=== PATIENT | female | born 1940 | race Hispanic/Latino ===

== ENCOUNTER 2016-12-06 07:35 | Day surgery (SDC) | payer MEDICARE, OTHER ==
--- NOTE | 2016-12-06 08:34 | Anesthesia Day of Surgery ---
Anesthesia Day of Surgery - Day of Surgery Patient Examined: Yes Patient H&P Reviewed: Yes Patient is NPO: Yes
--- NOTE | 2016-12-06 08:34 | Anesthesia Consultation ---
Anesthesia Consult and Med Hx Date of service: 12/06/16 - Airway Anesthetic Teeth Evaluation: Good ROM Head & Neck: Adequate Mental/Hyoid Distance: Adequate Mallampati Class: Class II Intubation Access Assessment: Probably Good - Pulmonary Exam CTA: Yes - Cardiac Exam Cardiac Exam: RRR - Pre-Operative Health Status ASA Pre-Surgery Classification: ASA2 Proposed Anesthetic Plan: General - Pulmonary Hx Smoking: Yes (STOPPED 1970- IRREGULAR SMOKER) Hx Sleep Apnea: No (TYREE PRE SCREEN HIGH RISK) - Cardiovascular System Hx Hypertension: Yes (X 20 YRS) - Central Nervous System Hx Back Pain: Yes - Gastrointestinal Hx Gastroesophageal Reflux Disease: Yes
[2016-12-06] MEDS ORDERED: NACL 0.9% 1000 ML 1,000 ML IV SCH (09:00)
[2016-12-06] MEDS ORDERED: ANCEF/STERILE WATER 2 GM/20 ML IV NR (09:00)
[2016-12-06] MEDS ORDERED: PEPCID PO NR (09:00)
[2016-12-06 09:16] LABS: Basophils % (Auto) 0.4 % (0.0-1.8); Eosinophils % (Auto) 2.5 % (0.0-4.3); Hematocrit 36.8 % (30.3-42.9); Mean Corpuscular HGB Conc 33 % (30-34); Mean Corpuscular Hemoglobin 29 pg (28-32); Mean Corpuscular Volume 88 fl (79-97); Platelet Count 205 K/mm3 (140-440); Red Blood Count 4.17 M/mm3 (3.65-5.03); Red Cell Distribution Width 14.1 % (13.2-15.2); White Blood Count 8.3 K/mm3 (4.5-11.0)
[2016-12-06] MEDS ORDERED: DIPRIVAN 10 MG/ML IV ONE (09:20)
[2016-12-06] MEDS ORDERED: XYLOCAINE MPF 2% ONE (09:21)
[2016-12-06] MEDS ORDERED: DILAUDID IV PRN ×2 (09:21)
[2016-12-06] MEDS ORDERED: SUBLIMAZE ONE (09:21)
[2016-12-06 09:24] LABS: BUN/Creatinine Ratio 17.27; Chloride 98.6 mmol/L (98-107); Potassium 3.4 mmol/L (3.6-5.0)
[2016-12-06] MEDS ORDERED: DILAUDID ONE (09:35)
--- NOTE | 2016-12-06 10:11 | Post Operative Note ---
Pre-op diagnosis: bladder cancer Post-op diagnosis: same Findings: min erythema Procedure: cysto BT biopsies Anesthesia: GETA Surgeon: ADONIS LOPEZ Estimated blood loss: minimal Pathology: list (bladder) Specimen disposition: to lab Disposition: PACU
[2016-12-06] MEDS ORDERED: NACL 0.9% IR ONE (10:45)
[2016-12-06] MEDS ORDERED: WATER FOR IRRIG STERILE IR ONE ×2 (10:45)
[2016-12-06] MEDS ORDERED: NEO SYNEPHRINE/NS Syringe(OR USE) IV ONE (10:49)
[2016-12-06] MEDS ORDERED: LASIX ONE (10:49)
[2016-12-06] MEDS ORDERED: ZOFRAN ONE (10:53)
[2016-12-06] MEDS ORDERED: DECADRON ONE (10:53)
--- NOTE | 2016-12-06 11:06 | Discharge Summary ---
Short Stay Discharge Plan Activity: other (no straining ) Weight Bearing Status: Full Weight Bearing Diet: regular, low fat, low cholesterol, low salt, other Special Instructions: other (fluids ) Durable Medical Equipment Needed Upon Discharge: other (teach vázquez care ) Follow up with: YUNG MILLS MD [Primary Care Provider] - 7 Days ADONIS LOPZE MD [Staff Physician] - 7 Days
--- NOTE | 2016-12-06 11:19 | Operative Report ---
PREOPERATIVE DIAGNOSIS: Bladder cancer. POSTOPERATIVE DIAGNOSES: Bladder cancer with minimal erythema, normal looking bladder. PROCEDURE: Cystoscopy, biopsies, fulguration. SURGEON: Luis Carlos Isaac MD ANESTHESIA: General. FINDINGS: This is a woman who had a high grade tumor. It was well resected. She now presents for followup cystoscopy and deeper biopsies. DESCRIPTION OF PROCEDURE: The patient was brought to the operating room and placed on the operating table. Following induction of anesthesia, placed in lithotomy position, prepped and draped in usual sterile fashion. Cystourethroscopy showed minimal erythema where the old tumor was. There was no recurrent tumor noted. Biopsies and deeper biopsies were obtained on that area, as well as we biopsied the other side as well. The patient tolerated the procedure well. Area was cauterized. Sterling catheter was left, irrigated clear. Family notified. The patient tolerated the procedure well and brought to recovery in stable condition. JOB# [id number] OWEN/JENNIFER
--- NOTE | 2016-12-06 11:45 | Post Anesthesia Evaluation ---
- Post Anesthesia Evaluation Patient Participated: Yes Airway Patent: Yes Stable Respiratory Function: Yes Nausea/Vomiting: No Temp > 96.8F: Yes Pain Manageable: Yes Adequeate Hydration: Yes Anesthesia Complications: No Block Receding Appropriately: Not Applicable Patient on Ventilator: No
[2016-12-06 12:45] VITALS: BP 146/62
== END 2016-12-06 12:43 | disposition home or self-care (01) ==
LOC: OR 07:35
PROVIDERS: ATTEND Urology
DX: D30.3 Benign neoplasm of bladder (principal); I10 Essential (primary) hypertension; Z87.891 Personal history of nicotine dependence; K21.9 Gastro-esophageal reflux disease without esophagitis
CPT/HCPCS: 36415; 52204; 80048; 85025; 88305; A4217; J0690; J1100; J1940; J2370; J2405; J2704; J3010; J7030; J1170

== ENCOUNTER 2017-03-30 12:15 | Day surgery (SDC) | payer MEDICARE, OTHER ==
[~2017-03-30 12:15] MED LIST: ANCEF/STERILE WATER 2 GM/20 ML 2 GM/20 ML SYRINGE IV NR; WATER FOR IRRIG STERILE IR ONE
[2017-03-30] MEDS ORDERED: NACL BACTERIOSTATIC INFILTRATI ONE (12:20)
[2017-03-30] MEDS ORDERED: ZOFRAN IV PRN (13:14)
[2017-03-30] MEDS ORDERED: SUBLIMAZE IV PRN (13:14)
--- NOTE | 2017-03-30 13:14 | Anesthesia Day of Surgery ---
Anesthesia Day of Surgery - Day of Surgery Patient Examined: Yes Patient H&P Reviewed: Yes Patient is NPO: Yes
--- NOTE | 2017-03-30 13:16 | Anesthesia Consultation ---
Anesthesia Consult and Med Hx Date of service: 03/30/17 - Airway Anesthetic Teeth Evaluation: Poor ROM Head & Neck: Adequate Mental/Hyoid Distance: Adequate Mallampati Class: Class II Intubation Access Assessment: Probably Good - Pulmonary Exam CTA: Yes (distant bs/ no wheeze) - Cardiac Exam Cardiac Exam: RRR - Pre-Operative Health Status ASA Pre-Surgery Classification: ASA3 Proposed Anesthetic Plan: General - Pulmonary Hx Smoking: Yes (d/c 1969') Hx Asthma: Yes Hx Respiratory Symptoms: Yes (uses neb prn) Hx Sleep Apnea: No (TYREE PRE SCREEN HIGH RISK) - Cardiovascular System Hx Hypertension: Yes (X 20 YRS) - Central Nervous System Hx Neuromuscular Disorder: Yes (OA) Hx Back Pain: Yes - Gastrointestinal Hx Gastroesophageal Reflux Disease: Yes (controlled on meds) - Other Systems Hx Obesity: Yes - Additional Comments Anesthesia Medical History Comments: lymphedema
[2017-03-30 13:49] LABS: Basophils % (Auto) 0.6 % (0.0-1.8); Eosinophils % (Auto) 7.3 % (0.0-4.3); Hematocrit 38.1 % (30.3-42.9); Hemoglobin 12.7 gm/dl (10.1-14.3); Mean Corpuscular HGB Conc 33 % (30-34); Mean Corpuscular Hemoglobin 29 pg (28-32); Mean Corpuscular Volume 88 fl (79-97); Platelet Count 253 K/mm3 (140-440); Red Blood Count 4.34 M/mm3 (3.65-5.03); White Blood Count 9.8 K/mm3 (4.5-11.0)
[2017-03-30] MEDS ORDERED: NACL 0.9% 1000 ML 1,000 ML IV SCH (14:00)
[2017-03-30] MEDS ORDERED: PEPCID IV NR (14:00)
[2017-03-30 14:03] LABS: Alanine Aminotransferase 14 units/L (7-56); Albumin/Globulin Ratio 1.5 %; Alkaline Phosphatase 72 units/L (35-129); Anion Gap 13 mmol/L; BUN/Creatinine Ratio 23.75; Blood Urea Nitrogen 19 mg/dL (7-17); Calcium 9.4 mg/dL (8.4-10.2); Carbon Dioxide 34 mmol/L (22-30); Chloride 95.1 mmol/L (98-107); Glucose 106 mg/dL (65-100); Potassium 3.6 mmol/L (3.6-5.0); Sodium 138 mmol/L (137-145); Total Protein 6.6 g/dL (6.3-8.2)
[2017-03-30] MEDS ORDERED: DIPRIVAN 10 MG/ML IV ONE (14:15)
[2017-03-30] MEDS ORDERED: XYLOCAINE MPF 2% ONE (14:30)
[2017-03-30] MEDS ORDERED: SUBLIMAZE ONE (14:31)
[2017-03-30] MEDS ORDERED: SORBITOL-MANNITOL IRRIG IR ONE (14:54)
[2017-03-30] MEDS ORDERED: DECADRON ONE (14:56)
[2017-03-30] MEDS ORDERED: ZOFRAN ONE (14:57)
[2017-03-30] MEDS ORDERED: ePHEDrine SULFATE ONE (14:59)
[2017-03-30] MEDS ORDERED: WATER FOR IRRIG STERILE IR ONE (15:08)
--- NOTE | 2017-03-30 15:29 | Post Anesthesia Evaluation ---
- Post Anesthesia Evaluation Airway Patent: Yes Stable Respiratory Function: Yes Nausea/Vomiting: No Temp > 96.8F: Yes Pain Manageable: Yes Adequeate Hydration: Yes Anesthesia Complications: No Block Receding Appropriately: Not Applicable Patient on Ventilator: No
--- NOTE | 2017-03-30 15:42 | Post Operative Note ---
Date of procedure: 03/30/17 Pre-op diagnosis: bladder cancer Post-op diagnosis: same Findings: 2 small superficial tumors Procedure: cysto bt excision Anesthesia: GETA Surgeon: ADONIS LOPEZ Estimated blood loss: minimal Pathology: list (bladder tumor) Specimen disposition: to lab Condition: stable Disposition: PACU
--- NOTE | 2017-03-30 15:43 | Discharge Summary ---
Short Stay Discharge Plan Activity: other (no straining ) Weight Bearing Status: Full Weight Bearing Diet: low fat, low cholesterol, low salt Special Instructions: other (inc fluids ) Durable Medical Equipment Needed Upon Discharge: other (vázquez x 5 days ) Follow up with: YUNG MILLS MD [Primary Care Provider] - 7 Days ADONIS LOPEZ MD [Staff Physician] - 04/04/17
--- NOTE | 2017-03-30 16:10 | Admit Criteria Form ---
Admission Criteria Documentation: AMBULATORY SURGERY EXCEPTION CRITERIA Ambulatory Surgery Exception Criteria ( Place 'X' for any and all applicable criteria): Surgery or procedure performed on ambulatory basis may require inpatient stay for[A] ANY ONE of the following(1)(2)(3)(4)(5)(6)(7)(8)(9): [X] I. A preoperative situation, condition, or finding that warrants inpatient stay as indicated by ANY ONE of the following: [] a) Inpatient care needed because of severity of a disease or condition rather than the surgery (eg, severe cardiac or respiratory disease, severe infection) (15) (16 ) (17) (18) [] b) Emergent procedure (eg, angioplasty for acute ischemia)(19) [] c) Complex surgical approach or situation as indicated by ANY ONE of the following(3): [] i) Open approach needed instead of usual endoscopic, transcatheter, or other less invasive procedure [] ii) Difficult approach because of previous operation [] iii) Airway monitoring required after open neck procedures(20)(21) [] iv) Large mass requiring unusually extensive dissection [] v) Additional complicating feature requiring inpatient care (eg, drain management)(22(23): [X] d) Major surgery in a pt with high anesthetic risk as indicated by ANY ONE of the following (2)(3)(5)(7)(8): [X] i) ASA risk class III or higher (severe systemic disease impairing function) [D] [] ii) Advanced age (eg, older than 85 years)(14)(24) [] iii) Symptomatic heart failure(25) [] iv) Symptomatic asthma or COPD(8)(21) [] v) Morbid obesity with hemodynamic or respiratory problems(20)( 21)(26)(27) [] vi) Obstructive sleep apnea(20)(21) [] vii) Former premature infants who are younger than 60 weeks [] viii) High risk for severe postoperative abnormalities (eg, severe postoperative hypocalcemia after parathyroidectomy for severe hyperparathyroidism)(27)( 28) [] ix) Unstable angina(25) [] e) Drug-related risk requiring inpatient stay as indicated by ANY ONE of the following(5)(10)(14)(32)(33) [] i) Procedure requires discontinuing drugs or other therapy (eg , antiarrhythmic medication, antiseizure medication), which necessitates inpatient observation or treatment.(18)(31) [] ii) Major surgery and high risk drug use as indicated by ANY ONE of the following: [] 1) Active abuse of cocaine or similar drug [] 2) Monoamine oxidase inhibitor use [] 3) Other drug identified as posing risk [] f) Inadequate outpatient care situation as indicated by ANY ONE of the following(5)(10)(14)(32)(33) [] i) Patient lives remote from medical facility and procedure has urgent complication potential, and temporary nearby residence cannot be arranged [] ii) Patient will have postprocedure incapacitation and inadequate assistance at home, or alternative level of care cannot be arranged. [] iii) Patient will have long general anesthesia or procedure side effect resolution time, and competent person to stay with patient on first postoperative night at home or alternative level of care cannot be arranged. []iv) Other inadequate outpatient situation that cannot be handled by other means [] II. A perioperative event, condition, or finding that warrants inpatient stay as indicated by ANY ONE of the following (1)(2)(3): [] a) Inadequate physiologic recovery: cardiovascular, respiratory, or hemodynamic status not normal or near preoperative baseline(18) [] b) Hemodynamic instability [] c) Patient not alert with near normal or baseline mental status [] d) Temperature not normal or as expected and not appropriate for outpatient treatment of condition [] e) Ambulatory or appropriate activity level status not yet achieved post procedure [E](34)(35)(36) [] f) Operative site not appropriate (eg, unexpected or excessive drainage or bleeding) [] g) Postoperative effects not resolved or adequately managed (eg, significant pain or vomiting not appropriate for outpatient or next level of care)(10)(12) [] h) Complicating features requiring inpatient care as indicated by ANY ONE of the following(37): [] i) Severe complications of procedure (eg, bowel injury, airway compromise, vascular injury,severe hemorrhage) [] ii) Extensive (eg, dissection far beyond usual scope of procedure ) or prolonged (eg, 120 minutes beyond usual) surgery needed requiring inpatient postoperative care [] iii) Conversion to an open or complex procedure that requires inpatient care (eg, open vs laparoscopic cholecystectomy, abdominal vs vaginal hysterectomy)(38) [] iv) Comorbid condition or test result identified during or post procedure that requires inpatient care (7) [] v) Malignant hyperthermia(30) [] vi) Other complicating feature requiring inpatient care(22)(23) Inpatient stay may be needed until ALL of the following are present (1)(2)(3)(4) (5)(6)(10)(14)(33)(40): []a) Physiologic recovery: cardiovascular, respiratory, and hemodynamic status normal or near preoperative baseline []b) Hemodynamic stability []c) Patient alert, with near normal or baseline mental status []d) Temperature appropriate: patient afebrile or temperature appropriate for outpt treatment of condition []e) Activity level appropriate: ambulatory or appropriate activity level post procedure []f) Operative site appropriate as indicated by ALL of the following: []i) Site dry or with expected drainage []ii) Any blood noted is as expected for procedure. []g) Postoperative effects resolved or managed as indicated by ALL of the following: []i) Pain management appropriate for outpatient (or next level of) care(10) []ii) Minimal nausea and vomiting: if present, successfully treated with oral medication(12) []iii) Headache, dizziness, or drowsiness (if present) are mild. []h) Voiding status acceptable as indicated by ANY ONE of the following: []i) Voiding spontaneously []ii) No voiding but instructions given for follow-up in 6 to 8 hours []iii) Urinary catheter in place, and instructions given for follow-up []i) Complicating features requiring inpatient care manageable at a lower level of care(37) []j) Comorbid conditions manageable at a lower level of care(37) The original [employer] content created by [employer] has been revised. The portions of the content which have been revised are identified through the use of italic text or in bold, and [facility] [employer] has neither reviewed nor approved the modified material. All other unmodified content is copyright [employer]. Please see references footnoted in the original [employer] edition 2016 Admission Criteria Met: Yes
[2017-03-30 17:42] VITALS: BP 159/77
--- NOTE | 2017-03-30 19:00 | Operative Report ---
PREOPERATIVE DIAGNOSIS: Recurrent bladder cancer. POSTOPERATIVE DIAGNOSIS: Recurrent bladder cancer. PROCEDURE: Cystoscopy, resection of bladder tumor. SURGEON: Luis Carlos Isaac M.D. ANESTHESIA: General. FINDINGS: This is a woman with recurrent lesion on the left side of the bladder, above the left orifice towards the dome. She now presents for treatment. She is 77 years of age and quite frail. DESCRIPTION OF PROCEDURE: The patient was brought to the operating room and placed on the operating table. Following induction of anesthesia, placed in lithotomy position, prepped and draped in usual sterile fashion. Cystourethroscopy showed these two lesions, each one measuring about a little less than a centimeter. Rather than resecting and risk large perforation, we extracted them and cauterized the base. We were clearly in muscle because we saw the fibers. The patient tolerated the procedure well. Sterling was left. There was no significant bleeding. Family was notified. We did not repeat the retrograde. Brought to recovery in stable condition. JOB# [id number] OWEN/JENNIFER
== END 2017-03-30 17:15 | disposition home or self-care (01) ==
LOC: OR 12:15
PROVIDERS: ATTEND Urology
DX: C67.9 Malignant neoplasm of bladder, unspecified (principal); J45.909 Unspecified asthma, uncomplicated; I10 Essential (primary) hypertension; M19.90 Unspecified osteoarthritis, unspecified site; K21.9 Gastro-esophageal reflux disease without esophagitis; E66.9 Obesity, unspecified; Z68.36 Body mass index [BMI] 36.0-36.9, adult; Z87.891 Personal history of nicotine dependence; Z79.899 Other long term (current) drug therapy
CPT/HCPCS: 36415; 52234; 80053; 85025; 88305; J0690; J1100; J2405; J2704; J3010; J7030

== ENCOUNTER 2017-04-08 11:25 | Inpatient (IN) | payer MEDICARE, OTHER ==
[2017-04-08] MEDS ORDERED: PROVENTIL IH PRN (15:24)
[2017-04-08] MEDS ORDERED: PROAIR IH SCH ×2 (16:00→22:00)
[2017-04-08] MEDS ORDERED: PROVENTIL IH SCH (16:00)
[2017-04-08 16:07] LABS: Basophils % (Auto) 0.8 % (0.0-1.8); Eosinophils % (Auto) 10.4 % (0.0-4.3); Hematocrit 38.6 % (30.3-42.9); Hemoglobin 12.8 gm/dl (10.1-14.3); Mean Corpuscular HGB Conc 33 % (30-34); Mean Corpuscular Hemoglobin 29 pg (28-32); Mean Corpuscular Volume 87 fl (79-97); Platelet Count 291 K/mm3 (140-440); Red Blood Count 4.42 M/mm3 (3.65-5.03); Red Cell Distribution Width 13.9 % (13.2-15.2); White Blood Count 10.4 K/mm3 (4.5-11.0)
[2017-04-08] MEDS: ZITHROMAX 500 MG in NACL 0.9% 250ML 250 ML IV SCH (16:11)
[2017-04-08] MEDS: LOVENOX SUB-Q SCH (16:11)
[2017-04-08 16:22] LABS: INR 1.02 (0.87-1.13); Partial Thromboplastin Time 32.9 Sec. (24.2-36.6)
[2017-04-08 16:44] LABS: Magnesium 1.3 mg/dL (1.7-2.3); Phosphorous 3.5 mg/dL (2.5-4.5)
[2017-04-08 16:51] LABS: Albumin 4.4 g/dL (3.9-5); Albumin/Globulin Ratio 2.3 %; Bilirubin,Total 0.5 mg/dL (0.1-1.2); Calcium 9.5 mg/dL (8.4-10.2); Chloride 92.3 mmol/L (98-107); Potassium 4.2 mmol/L (3.6-5.0); Total Protein 6.3 g/dL (6.3-8.2)
[2017-04-08] MEDS ORDERED: DELTASONE PO STA (19:30)
--- NOTE | 2017-04-08 19:36 | History and Physical Report ---
History of Present Illness Date of examination: 04/08/17 Date of admission: 04/08/17 13:59 Chief complaint: Cough, shortness of breath, wheezing History of present illness: Patient is 77-year-old lady was a history of asthma, bladder cancer status post transurethral resection of the same presents to my office with a history of persistent cough with wheezing for the past 3 days. Symptoms at [facility] for the past 3 months. Denies any fever. Cough is nonproductive. No weight loss denies night. Denies orthopnea proximal nocturnal dyspnea. No pedal edema. Patient has morbid obesity affecting all extremities and the trunk. Patient had transurethral resection of bladder cancer in August 2016 and another one in 04/19/2017. Patient denies any fever, no hematemesis. Patient was in moderate respiratory distress in my office with shortness of breath and coughing. Was given breathing treatment that improved her symptoms. Direct admission was therefore requested. On admission to the hospital patient was found to be hypoxic with an O2 sat of 85-87%. CBC was unremarkable, BUN was elevated to 18 with a low magnesium at 1.3. Past History Past Medical History: hypertension, other (shortness of breath with wheezing, malignant bladder cancer status post resection) Past Surgical History: total knee replacement Social history: lives with family. denies: smoking, alcohol abuse Family history: no significant family history Medications and Allergies Allergies Allergy/AdvReac Type Severity Reaction Status Date / Time No Known Allergies Allergy Verified 12/02/16 12:24 Home Medications Medication Instructions Recorded Confirmed Last Taken Type Atenolol/Chlorthalidone [Tenoretic 1 tab PO QAM 08/26/16 03/24/17 03/29/17 History 50-25] Gabapentin [Gralise] 200 mg PO TID 08/26/16 03/24/17 03/30/17 09:00 History Lisinopril [Zestril TAB] 40 mg PO QDAY 08/26/16 03/24/17 03/30/17 09:00 History Lovastatin [Altoprev] 40 mg PO QPM 08/26/16 03/24/17 03/29/17 History Omeprazole [Omeprazole] 20 mg PO DAILY 08/26/16 03/24/17 03/29/17 History ALBUTEROL Inhaler [Proair] 2 puff IH QID PRN 03/24/17 03/24/17 03/29/17 History Albuterol Sulfate [Albuterol 0.63% 1 dose INHALATION TID 03/24/17 03/24/1703/29 History NEBS] Benzonatate [Tessalon Perles] 100 mg PO PRN PRN 03/24/17 03/24/17 03/29/17 History Active Meds: Active Medications Albuterol (Proventil) 2.5 mg IH BIDRT GENE Albuterol/Ipratropium (Duoneb 0.5 Mg-3 Mg/3 Ml Soln) 1 ampul IH Q4HRT GENE Enoxaparin Sodium (Lovenox) 40 mg SUB-Q QDAY GENE Last Admin: 04/08/17 16:11 Dose: 40 mg Hydrocodone Bit/Homatropine Methylb (Hydromet) 5 ml PO TID [facility] Azithromycin 500 mg/ Sodium (Chloride) 250 mls @ 250 mls/hr IV Q24H GENE Methylprednisolone Sodium Succinate (Solu-Medrol) 60 mg IV Q12H [facility] Review of systems Constitutional: Obese and Well developed. Head: NC/ AT Eyes: Denies any visual impairments. No discharge from the eyes Nose: Denies any rhinorrhea or epistaxis Throats: Denies any post nasal drainage. Ears: Denies any hearing deficits Cardiovascular system: Denies any chest pain, shortness of breath, orthopnea, paroxysmal nocturnal dyspnea, or palpitation. Respiratory system: Has cough, difficulty breathing, wheezing. no pleuritic chest pain, Gastrointestinal system: Denies any abdominal pain, nausea vomiting, hematemesis or melena. Neurological system: Denies any headache, slurred speech, facial droop, lateralizing weakness Genitalia system: Denies any dysuria, urinary frequency or urgency, urethral discharge Skin: No rashes, hyperpigmented spots. Hematological: Denies any cervical tenderness hemorrhages or petechia. Immunological: Denies any multiple septic spots, Lymphatic: Denies any generalized lymphadenopathy. Endocrine: Denies any polyuria, polydipsia, polyphagia. No heat or cold intolerance. Musculoskeletal system: No joint pain or swelling. Psych: No visual, tactile, auditory or hallucination Exam - Constitutional Vitals: Temp Pulse Resp BP Pulse Ox 98.2 F 78 18 119/63 04/08/17 15:41 04/08/17 15:41 04/08/17 15:41 04/08/17 15:41 General appearance: Present: severe distress, well-nourished - EENT Eyes: Present: PERRL ENT: clear oral mucosa - Neck Neck: Present: supple, normal ROM - Respiratory Respiratory effort: normal Respiratory: bilateral: diminished, wheezing - Cardiovascular Heart Sounds: Present: S1 & S2. Absent: rub, click - Extremities Extremities: pulses symmetrical, No edema Peripheral Pulses: within normal limits - Abdominal General gastrointestinal: Present: soft, non-tender, non-distended, normal bowel sounds Female genitourinary: Present: normal - Integumentary Integumentary: Present: clear, warm, dry - Musculoskeletal Musculoskeletal: gait normal, strength equal bilaterally - Psychiatric Psychiatric: appropriate mood/affect, intact judgment & insight - Neurologic Neurologic: CNII-XII intact, moves all extremities Results - Labs CBC & Chem 7: 04/08/17 15:39 04/08/17 15:39 Labs: Abnormal lab results 04/08/17 04/08/17 04/08/17 Range/Units 15:39 15:39 15:39 [place] % (Auto) 9.5 H (0.0-7.3) % Eos % (Auto) 10.4 H (0.0-4.3) % [place] # 1.0 H (0.0-0.8) K/mm3 Eos # 1.1 H (0.0-0.4) K/mm3 Chloride 92.3 L (98-107) mmol/L BUN 18 H (7-17) mg/dL Glucose 109 H (65-100) mg/dL Magnesium 1.30 L (1.7-2.3) mg/dL Assessment and Plan Shortness of breath Acute hypoxemic respiratory failure Asthma Hypomagnesemia History of bladder cancer status post transurethral resection Admit patient to the [facility] a units -Obtain chest x-ray, ABG, CT scan of the chest abdomen and pelvis given the fact the patient had a history of bladder cancer status post transurethral resection DuoNeb every 4hrs Brovana inhaler IV Solu-Medrol IV azithromycin Supplement magnesium level DVT prophylaxis with Lovenox GI prophylaxis with Protonix Spent 35 minutes during this admission process, in direct patient care, reviewing the results, dyspnea management plan to patient and was in the room during this evaluation
[2017-04-08] MEDS: DUONEB 0.5 MG-3 MG/3 ML SOLN IH SCH ×2 (19:39→23:50)
[2017-04-08] MEDS: PROVENTIL IH SCH (20:00)
[2017-04-08 20:22] LABS: ISTAT Base Excess 6; ISTAT HCO3 31.2; ISTAT PCO2 49.9 (35-45); ISTAT PH 7.404 (7.35-7.45); ISTAT PO2 64 (80-105); ISTAT SO2 92; ISTAT TCO2 33
[2017-04-08] MEDS: HYDROMET PO SCH (20:29)
--- NOTE | 2017-04-09 01:10 | Cat Scan Report ---
FINAL REPORT PROCEDURE: CT ABDOMEN PELVIS W CON TECHNIQUE: Computerized axial tomography of the abdomen and pelvis was performed after the IV injection of iodinated nonionic contrast. HISTORY: Cough, and SOB COMPARISON: 08/26/2016 FINDINGS: Visualized lower thorax: No significant abnormality. Liver: Normal size and attenuation. Spleen: Normal size and attenuation. Gallbladder and biliary system: Normal. Pancreas: There is a 15 millimeter cyst in the mid body of the pancreas. This has not changed since prior study.. Adrenals: Normal. Kidneys: Both kidneys have a normal size. No hydronephrosis. No renal stones or masses. GI tract: Stomach is normal. The small bowel has a normal caliber. No obstruction, ileus or enteritis. The cecum, appendix and colon are normal.. Lymph nodes and mesentery: Normal. Vasculature: Moderate atherosclerosis of the aorta and branching vessels.. Bladder: Normal. Reproductive organs: Normal. Peritoneum: No free fluid. Musculoskeletal structures: Moderate degenerative changes of the lumbar spine. Other: None. IMPRESSION: There is no evidence of intestinal urinary tract obstruction. No ileus or enteritis. 15 millimeter cyst in the mid body of the pancreas is unchanged.
--- NOTE | 2017-04-09 01:15 | Cat Scan Report ---
FINAL REPORT PROCEDURE: CT ANGIO CHEST TECHNIQUE: Computerized tomographic angiography of the chest was performed after the IV injection of iodinated nonionic contrast including image processing. The image data was postprocessed using 2-dimensional multiplanar reformatted (MPR) and 3-dimensional (MIP and/or volume rendered) techniques. HISTORY: Cough, and SOB COMPARISON: No prior studies are available for comparison. FINDINGS: Heart and pericardium: Normal. Thoracic aorta: Normal. Pulmonary vasculature: Normal. Lymph nodes: No enlarged thoracic lymph nodes. Lungs: The lungs are clear. No infiltrate, effusion or pneumothorax. Pleural space: No effusion, thickening, or pneumothorax. Musculoskeletal structures: Mild degenerative changes of the thoracic spine. Upper abdominal structures: No significant abnormality. IMPRESSION: There is no evidence pulmonary arterial emboli. The lungs are clear without infiltrate, effusion or pneumothorax.
[2017-04-09 06:20] LABS: Hemoglobin 12.5 gm/dl (10.1-14.3); Mean Corpuscular HGB Conc 33 % (30-34); Mean Corpuscular Hemoglobin 29 pg (28-32); Mean Corpuscular Volume 89 fl (79-97); Red Blood Count 4.29 M/mm3 (3.65-5.03); White Blood Count 6.6 K/mm3 (4.5-11.0)
[2017-04-09 06:30] LABS: Platelet Count 239 K/mm3 (140-440)
[2017-04-09 06:37] LABS: Alanine Aminotransferase 11 units/L (7-56); Albumin 4.2 g/dL (3.9-5); Albumin/Globulin Ratio 2.1 %; Alkaline Phosphatase 75 units/L (35-129); Anion Gap 22 mmol/L; BUN/Creatinine Ratio 17.77; Blood Urea Nitrogen 16 mg/dL (7-17); Calcium 9.3 mg/dL (8.4-10.2); Carbon Dioxide 25 mmol/L (22-30); Chloride 92.7 mmol/L (98-107); Glucose 156 mg/dL (65-100); Potassium 3.6 mmol/L (3.6-5.0); Sodium 136 mmol/L (137-145); Total Protein 6.2 g/dL (6.3-8.2)
[2017-04-09] MEDS: DUONEB 0.5 MG-3 MG/3 ML SOLN IH SCH ×2 (07:34→12:30)
[2017-04-09] MEDS: PROVENTIL IH SCH (07:35)
[2017-04-09] MEDS: LOVENOX SUB-Q SCH (09:05)
[2017-04-09] MEDS: HYDROMET PO SCH ×3 (09:05→20:28)
[2017-04-09] MEDS: CARDIZEM CD PO SCH (09:07)
--- NOTE | 2017-04-09 09:23 | XRay Report ---
ROUTINE CHEST, TWO VIEWS: HISTORY: Shortness of breath, cough. The trachea, heart, mediastinal contour, lung [place] and bony thorax are unremarkable. No significant change since 02/04/17. IMPRESSION: Unremarkable chest x-ray.
[2017-04-09 09:29] LABS: Basophils % (Manual) 0 % (0.0-1.8); Blastocytes % (Manual) 0 %; Eosinophils % (Manual) 0 % (0.0-4.3); Large Platelets 1+; RBC Morphology Normal; Total Cells Counted Percent 0
[2017-04-09 09:30] LABS: Diff Status Complete; Platelet Estimate Cons
[2017-04-09] MEDS: ZITHROMAX 500 MG in NACL 0.9% 250ML 250 ML IV SCH ×2 (16:24→18:31)
--- NOTE | 2017-04-09 18:42 | Progress Note ---
Assessment and Plan Assessment -Acute hypoxemic respiratory failure; CT chest was normal. No PE. CXR was normal -Asthma -Shortness of breath -Hypomagnesemia- Corrected -History of bladder cancer status post transurethral resection -Hyperglycemia - Steriod induced -Tachyxcardia with duoneb. Will change to Xopenex -Constipation Plan Continue with -DuoNeb every 4hrs, Brovana inhaler, IV Solu-Medrol -IV azithromycin -Check A1c -Miralax -Lorazepan 1 mg q hs -DVT prophylaxis with Lovenox -GI prophylaxis with Protonix Subjective Date of service: 04/09/17 Principal diagnosis: Acute hypoxemic respiratory failure Interval history: Shortness of breath improved Objective - Constitutional Vitals: Vital Signs - 12hr 04/09/17 04/09/17 04/09/17 07:25 07:37 09:07 Pulse Rate 114 H Pulse Rate [ 104 H 100 H Anterior] Respiratory 20 20 Rate [Anterior] Blood Pressure 175/69 04/09/17 04/09/17 12:25 12:39 Pulse Rate Pulse Rate [ 100 H 99 H Anterior] Respiratory 20 20 Rate [Anterior] Blood Pressure General appearance: Present: no acute distress, well-nourished - EENT Eyes: PERRL, EOM intact - Neck Neck: supple, normal ROM - Respiratory Respiratory effort: normal Respiratory: bilateral: diminished, wheezing - Cardiovascular Rhythm: regular Heart Sounds: Present: S1 & S2. Absent: gallop, rub Extremities: pulses intact, No edema, normal color, Full ROM - Gastrointestinal General gastrointestinal: Present: soft, non-tender, non-distended, normal bowel sounds - Integumentary Integumentary: clear, warm, dry - Musculoskeletal Musculoskeletal: 1, strength equal bilaterally - Psychiatric Psychiatric: memory intact, appropriate mood/affect, intact judgment & insight - Labs CBC & Chem 7: 04/09/17 05:12 04/09/17 05:12 Labs: Abnormal lab results 04/08/17 04/09/17 04/09/17 Range/Units 20:11 05:12 05:12 Seg Neuts % (Manual) 87.0 H (40.0-70.0) % Lymphocytes % (Manual) 13.0 L (13.4-35.0) % Lymphocytes # (Manual) 0.9 L (1.2-5.4) K/mm3 POC ABG pCO2 49.9 H (35-45) POC ABG pO2 64 L (80-105) Sodium 136 L (137-145) mmol/L Chloride 92.7 L (98-107) mmol/L Glucose 156 H (65-100) mg/dL Total Protein 6.2 L (6.3-8.2) g/dL
[2017-04-09] MEDS ORDERED: XOPENEX IH PRN (19:04)
[2017-04-09] MEDS ORDERED: PROVENTIL IH SCH (20:00)
[2017-04-09] MEDS ORDERED: DUONEB 0.5 MG-3 MG/3 ML SOLN IH SCH (20:00)
[2017-04-09] MEDS ORDERED: XOPENEX IH SCH (20:45)
[2017-04-09] MEDS ORDERED: MIRAPEX PO SCH (22:00)
[2017-04-09] MEDS: ATIVAN PO SCH (22:07)
[2017-04-10] MEDS: PROVENTIL IH PRN (08:49)
[2017-04-10] MEDS: HYDROMET PO SCH ×3 (08:55→21:22)
[2017-04-10] MEDS: CARDIZEM CD PO SCH (10:39)
[2017-04-10] MEDS: LOVENOX SUB-Q SCH (10:39)
--- NOTE | 2017-04-10 12:20 | Progress Note ---
Assessment and Plan Assessment -Acute hypoxemic respiratory failure; CT chest was normal. No PE. CXR was normal -Asthma -Shortness of breath -History of bladder cancer status post transurethral resection 07/2016 and 02/2017 -Hyperglycemia - Steriod induced -Tachyxcardia with duoneb. Will change to Xopenex -Constipation Plan Continue with -DuoNeb every 4hrs, Brovana inhaler, IV Solu-Medrol -IV azithromycin -Check A1c -Miralax -Lorazepan 1 mg q hs -DVT prophylaxis with Lovenox -GI prophylaxis with Protonix Subjective Date of service: 04/10/17 Principal diagnosis: Acute hypoxemic respiratory failure Interval history: Shortness of breath and wheezing improved Objective - Constitutional Vitals: Vital Signs - 12hr 04/10/17 04/10/17 08:17 10:39 Temperature 98.2 F Pulse Rate 91 H Pulse Rate [ 91 H Left] Respiratory 20 Rate Blood Pressure 146/81 Blood Pressure 116/81 [Left Arm] General appearance: Present: no acute distress, well-nourished - EENT Eyes: PERRL, EOM intact - Neck Neck: supple, normal ROM - Respiratory Respiratory effort: normal Respiratory: bilateral: diminished - Cardiovascular Rhythm: regular Heart Sounds: Present: S1 & S2. Absent: gallop, rub Extremities: pulses intact, No edema, normal color, Full ROM - Gastrointestinal General gastrointestinal: Present: soft, non-tender, non-distended - Integumentary Integumentary: clear, warm, dry - Musculoskeletal Musculoskeletal: 1, strength equal bilaterally - Neurologic Neurologic: moves all extremities - Psychiatric Psychiatric: memory intact, appropriate mood/affect, intact judgment & insight - Labs CBC & Chem 7: 04/09/17 05:12 04/09/17 05:12
[2017-04-10] MEDS ORDERED: CITRATE OF MAGNESIA PO PRN (12:28)
[2017-04-10] MEDS ORDERED: GABAPENTIN 200 MG PO SCH (14:00)
[2017-04-10] MEDS ORDERED: NACL 0.9% 250ML 0 ML ONE (15:43)
[2017-04-10] MEDS: ZITHROMAX 500 MG in NACL 0.9% 250ML 250 ML IV SCH (16:05)
[2017-04-10] MEDS: PROTONIX PO SCH (21:22)
[2017-04-10] MEDS: NEURONTIN PO SCH (21:24)
[2017-04-10] MEDS ORDERED: NON-FORMULARY (Lovastatin [Altoprev] 40 MG) PO SCH (22:00)
[2017-04-10] MEDS ORDERED: ZOCOR PO SCH (22:00)
[2017-04-10] MEDS ORDERED: NEURONTIN PO SCH (22:00)
[2017-04-11] MEDS: ATIVAN PO SCH (01:34)
[2017-04-11] MEDS: NEURONTIN PO SCH (08:09)
[2017-04-11] MEDS: HYDROMET PO SCH (08:09)
[2017-04-11] MEDS: LOVENOX SUB-Q SCH (09:08)
[2017-04-11] MEDS: PROTONIX PO SCH (09:09)
[2017-04-11] MEDS: CARDIZEM CD PO SCH (09:13)
[2017-04-11 10:34] VITALS: BP 170/74
--- NOTE | 2017-04-11 10:58 | Discharge Summary ---
Providers - Providers Date of Admission: 04/08/17 13:59 Date of discharge: 04/11/17 Attending physician: YUNG MILLS none Primary care physician: YUNG MILLS Hospitalization Reason for admission: COPD exacerbation Pertinent studies: CT scan of the chest that was on 04/16/2014. Showed no evidence of pulmonary embolism on infiltrates. CT scan of abdomen and pelvis showed no evidence of intestinal obstruction. No evidence of metastasis. 5 mm cystic lesion was seen in the body of the pancreas that remained unchanged from prior CT scan. Procedures: None Hospital course: Patient is 77-year-old lady was a history of asthma, bladder cancer status post transurethral resection of the same in August 2016 presents to my office with a history of persistent cough with wheezing for the past 3 days. Patient was lethargic. Symptoms have persisted for the past 3 months. Denies any fever. Cough is nonproductive. No weight loss, denies night sweats. Denies orthopnea proximal nocturnal dyspnea. No pedal edema. Patient has morbid obesity affecting all extremities and the trunk. Patient had transurethral resection of bladder cancer in August 2016 and another one in 04/19/2017. Patient was in moderate respiratory distress in my office with shortness of breath and coughing. Was given breathing treatment that improved her symptoms. Direct admission was therefore requested. On admission to the hospital patient was found to be hypoxic with an O2 sat of 85-87%. CBC was unremarkable, BUN was elevated to 18 with a low magnesium at 1.3. Patient was commenced on DuoNeb. IV Solu-Medrol. IV azithromycin. Cough with wheezing improved. Patient was given Hycodan for the cough. CT scan of the lungs abdomen and pelvis were done to rule out a pulmonary embolism given the patient's history of bladder cancer status post transurethral resection on two different occasions. Report showed no evidence of poor embolism, 15 mm cysts was identified in the body of the pancreas that remained unchanged from prior CT scan. Symptoms improved. Wheezing coughing and shortness of breath improved. Patient was able tablet on the floor. He is therefore being discharged today to follow up with primary care physician. Disposition: DISCHARGED TO HOME OR SELFCARE Core Measure Documentation - Palliative Care Palliative Care/ Comfort Measures: Not Applicable - Core Measures Any of the following diagnoses?: none Exam - Constitutional Vitals: Temp Pulse Resp BP Pulse Ox 97.9 F 72 18 170/74 93 04/11/17 10:00 04/11/17 10:00 04/11/17 10:00 04/11/17 10:00 04/11/17 10:00 General appearance: Present: no acute distress, well-nourished - EENT Eyes: Present: PERRL ENT: hearing intact, clear oral mucosa - Neck Neck: Present: supple, normal ROM - Respiratory Respiratory effort: normal Respiratory: bilateral: CTA - Cardiovascular Heart Sounds: Present: S1 & S2. Absent: rub, click - Extremities Extremities: pulses symmetrical, No edema Peripheral Pulses: within normal limits - Abdominal General gastrointestinal: Present: soft, non-tender, non-distended, normal bowel sounds Female genitourinary: Present: normal - Integumentary Integumentary: Present: clear, warm, dry - Musculoskeletal Musculoskeletal: gait normal, strength equal bilaterally - Psychiatric Psychiatric: appropriate mood/affect, intact judgment & insight - Neurologic Neurologic: CNII-XII intact, moves all extremities Plan Activity: fall precautions Weight Bearing Status: Weight Bear as Tolerated Diet: regular, low fat, low cholesterol Special Instructions: record daily BP diary, pacer check in 6 weeks Durable Medical Equipment Needed Upon Discharge: Nebulizer (already has one at home) Follow up with: YUNG MILLS MD [Primary Care Provider] - 3 Days Prescriptions: ALBUTEROL NEB's [Proventil 0.083% NEBS] 2.5 mg IH Q6HRT PRN #100 nebu PRN Reason: Shortness Of Breath Benzonatate [Tessalon Perles] 100 mg PO PRN PRN #30 capsule PRN Reason: Cough Diltiazem Cd [Cardizem CD] 180 mg PO QDAY #30 capsule HYDROcodone/HOMATROP 5-1.5 [HYDROcodone-Homatropin 5-1.5 mg per 5 ML] 5 ml PO TID #90 udc LORazepam [Ativan] 1 mg PO QHS #15 tablet Lovastatin [Altoprev] 40 mg PO QHS #30 tab.er.24h Prednisone [predniSONE 10 mg (6-Day Pack, 21 Tabs)] 10 mg PO .TAPER #1 tab.ds.pk
[2017-04-11] MEDS: PROVENTIL IH PRN (11:45)
== END 2017-04-11 13:00 | disposition home or self-care (01) | DRG 189 ==
LOC: UNDOADMIN 11:25 → 3A 11:25 → CC2 13:59
PROVIDERS: ADMIT Family Medicine; ATTEND Family Medicine
PROC: 4A033R1 Measurement of Arterial Saturation, Peripheral, Percutaneous Approach (ICD-10-PCS; principal; 2017-04-08)
DX: J96.01 Acute respiratory failure with hypoxia (principal); J44.1 Chronic obstructive pulmonary disease with (acute) exacerbation; R73.9 Hyperglycemia, unspecified; K59.00 Constipation, unspecified; E66.01 Morbid (severe) obesity due to excess calories; I10 Essential (primary) hypertension; Z96.659 Presence of unspecified artificial knee joint; E83.42 Hypomagnesemia; R00.0 Tachycardia, unspecified; Z85.51 Personal history of malignant neoplasm of bladder; Z68.39 Body mass index [BMI] 39.0-39.9, adult
CPT/HCPCS: 36415; 36600; 71020; 71275; 74177; 80053; 82803; 83036; 83735; 84100; 85007; 85025; 85610; 85730; 94640; J0456; J1650; J2930; J3475; J7050; J7512; Q9967

== ENCOUNTER 2017-08-31 11:31 | Day surgery (SDC) | payer MEDICARE, OTHER ==
[2017-08-31] MEDS ORDERED: ANCEF/STERILE WATER 2 GM/20 ML 2 GM/20 ML SYRINGE IV NR (12:00)
[2017-08-31] MEDS ORDERED: DILAUDID ONE (13:02)
[2017-08-31] MEDS ORDERED: DIPRIVAN 10 MG/ML IV ONE (13:02)
[2017-08-31] MEDS ORDERED: XYLOCAINE MPF 2% ONE (13:03)
--- NOTE | 2017-08-31 13:07 | Anesthesia Consultation ---
Anesthesia Consult and Med Hx Date of service: 08/31/17 - Airway Anesthetic Teeth Evaluation: Good ROM Head & Neck: Adequate Mental/Hyoid Distance: Adequate Mallampati Class: Class II Intubation Access Assessment: Probably Good - Pulmonary Exam CTA: Yes - Cardiac Exam Cardiac Exam: RRR - Pre-Operative Health Status ASA Pre-Surgery Classification: ASA3 Proposed Anesthetic Plan: General - Pulmonary Hx Smoking: Yes (d/c 1969') Hx Asthma: Yes (INHALERS PRN) Hx Respiratory Symptoms: Yes (uses neb prn) Hx Sleep Apnea: No (TYREE PRE SCREEN HIGH RISK) - Cardiovascular System Hx Hypertension: Yes (X 20 YRS) - Central Nervous System Hx Neuromuscular Disorder: Yes (OA) Hx Back Pain: Yes - Gastrointestinal Hx Gastroesophageal Reflux Disease: Yes (controlled on meds) - Other Systems Hx Alcohol Use: No Hx Cancer: Yes (BLADDER AND BREAST) Hx Obesity: Yes
--- NOTE | 2017-08-31 13:07 | Anesthesia Day of Surgery ---
Anesthesia Day of Surgery - Day of Surgery Patient Examined: Yes Patient H&P Reviewed: Yes Patient is NPO: Yes Beta Blockers: Yes
[2017-08-31] MEDS ORDERED: OMNIPAQUE 300 MG/50 ML (CATH LAB) IV ONE (13:50)
[2017-08-31] MEDS ORDERED: WATER FOR IRRIG STERILE IR ONE (13:50)
--- NOTE | 2017-08-31 13:54 | Post Operative Note ---
Date of procedure: 08/31/17 Pre-op diagnosis: bladder cancer Post-op diagnosis: same Findings: lesion Procedure: cysto rpgs biopsies Anesthesia: GETA Surgeon: ADONIS LOPEZ Estimated blood loss: minimal Pathology: list (bladder) Specimen disposition: to lab Condition: stable Disposition: PACU
--- NOTE | 2017-08-31 13:56 | Discharge Summary ---
Short Stay Discharge Plan Activity: other (no straining ) Weight Bearing Status: Full Weight Bearing Diet: low fat, low cholesterol, low salt Special Instructions: other (inc fluids ) Durable Medical Equipment Needed Upon Discharge: other (teach vázquez care ) Follow up with: YUNG MILLS MD [Primary Care Provider] - 7 Days ADONIS LOPEZ MD [Staff Physician] - 7 Days
[2017-08-31] MEDS ORDERED: NACL 0.9% 1000 ML 1,000 ML IV SCH (14:00)
[2017-08-31] MEDS ORDERED: PEPCID PO NR (14:00)
[2017-08-31] MEDS ORDERED: ePHEDrine SULFATE ONE (14:27)
[2017-08-31] MEDS ORDERED: ZOFRAN ONE (14:39)
--- NOTE | 2017-08-31 14:53 | Operative Report ---
PREOPERATIVE DIAGNOSIS: Bladder cancer. POSTOPERATIVE DIAGNOSIS: Bladder cancer. PROCEDURE: Cystoscopy, cytology examination, bilateral retrogrades and biopsy. SURGEON: Luis Carlos Isaac MD ANESTHESIA: General. FINDINGS: This woman with a history of bladder cancer. She now presents for cystoscopy. All risks and complications were discussed. DESCRIPTION OF PROCEDURE: The patient was brought to the operating room and placed on the operating table. Following induction of anesthesia, prepped and draped in usual sterile fashion. Examination showed no palpable masses. Cystoscopy showed no lesions. There is slight, posterior wall. Biopsies were done, right lateral wall and mid posterior wall. Retrograde showed good filling, good drainage with no persistent filling defects. The patient tolerated the procedure well. No significant complications. The area was cauterized. There was no significant bleeding. Sterling catheter was left to be removed in 1-2 days. Family was notified, brought to recovery in stable condition. JOB# [id number] OWEN/JENNIFER
[2017-08-31 18:01] VITALS: BP 132/60
--- NOTE | 2017-09-01 08:51 | Fluoroscopy Report ---
Retrograde pyelogram: Bladder cancer. The noncontrasted exam demonstrates diffuse lumbar spondylosis and interspace narrowing. No soft tissue calcifications. Bilateral injections into the ureters demonstrate good opacification of both ureters and intrarenal collecting systems. There are no abnormalities identified. Impression: Unremarkable exam.
== END 2017-08-31 16:45 | disposition home or self-care (01) ==
LOC: OR 11:31
PROVIDERS: ATTEND Urology
DX: C67.9 Malignant neoplasm of bladder, unspecified (principal); J45.909 Unspecified asthma, uncomplicated; I10 Essential (primary) hypertension; M19.90 Unspecified osteoarthritis, unspecified site; K21.9 Gastro-esophageal reflux disease without esophagitis; E66.9 Obesity, unspecified; Z68.36 Body mass index [BMI] 36.0-36.9, adult; Z87.891 Personal history of nicotine dependence; Z85.3 Personal history of malignant neoplasm of breast; Z79.899 Other long term (current) drug therapy
CPT/HCPCS: 36415; 52204; 74420; 84132; 88112; 88305; A4217; C1758; J0690; J1170; J2405; J2704; J7030; Q9967

== ENCOUNTER 2019-02-11 20:00 | Emergency (ER) | payer MEDICARE, OTHER ==
--- NOTE | 2019-02-11 20:34 | Emergency Department Report ---
Chief Complaint: Nausea/Vomiting/Diarrhea Stated Complaint: NVD Time Seen by Provider: 02/11/19 20:30 - HPI History of Present Illness: 79 YO WITH DIARRHEA WAS TAKING OTC DIARRHEA PILLS AND DEC SOME THEN 0 STARTED N/V/D ALSO SOB BUT CHRONIC ALSO HAS CURRENT BROKE TOE PCP [facility] ? SP--NEEDS NEW PCP [facility] COLONOSCOPY IN PAST HPLD HTN HX BLADDER CA- IN REMISSION NO CVA OR CAD PSH BLADDER BREAST CA RX LISINOPRIL ATENOLOL/CHLOR GABAPENTINE FOLLASTATINRO ? SP MSE COMPLETED - Exam Vital Signs: Vital Signs 02/11/19 20:18 Temperature 98.5 F Pulse Rate 91 H Respiratory 18 Rate Blood Pressure 176/71 O2 Sat by Pulse 96 Oximetry MSE screening note: Focused history and physical exam performed. Due to findings the following was ordered: ED Disposition for MSE Condition: Stable
[2019-02-11] MEDS ORDERED: ZOFRAN ODT PO ONE (20:37)
[2019-02-11 21:05] LABS: Basophils % (Auto) 0.2 % (0.0-1.8); Eosinophils # (Auto) 0.1 K/mm3 (0.0-0.4); Eosinophils % (Auto) 0.6 % (0.0-4.3); Hematocrit 40.1 % (30.3-42.9); Hemoglobin 13.5 gm/dl (10.1-14.3); Lymphocytes # (Auto) 1.2 K/mm3 (1.2-5.4); Lymphocytes % (Auto) 9.4 % (13.4-35.0); Mean Corpuscular HGB Conc 34 % (30-34); Mean Corpuscular Volume 88 fl (79-97); Monocytes # (Auto) 0.9 K/mm3 (0.0-0.8); Monocytes % (Auto) 7.7 % (0.0-7.3); Platelet Count 294 K/mm3 (140-440); Red Blood Count 4.55 M/mm3 (3.65-5.03); Red Cell Distribution Width 14.3 % (13.2-15.2)
[2019-02-11] MEDS ORDERED: NACL 0.9% 1000 ML 1,000 ML IV ONE (21:17)
[2019-02-11 21:19] LABS: Alanine Aminotransferase 23 units/L (7-56); Albumin 4.4 g/dL (3.9-5); BUN/Creatinine Ratio 16; Blood Urea Nitrogen 14 mg/dL (7-17); Hemolysis Index 0
[2019-02-11 21:24] LABS: Bacteria,Urine 1+ /HPF (Negative); Bilirubin,Urine NEG (Negative); Blood,Urine NEG (Negative); Color,Urine Amber (Yellow); Hyaline Casts,Urine 10 /LPF; Mucus,Urine 1+ /HPF
--- NOTE | 2019-02-11 21:33 | XRay Report ---
PROCEDURE: XR ABD SERIES W CXR 1V TECHNIQUE: Abdominal series complete, including supine and upright AP views of the abdomen and front al chest. HISTORY: ABD PAIN AND DIARRHEA COMPARISONS: None . FINDINGS: Heart: Normal. Mediastinum/Vessels: Normal. Lungs/Pleural space: Slightly increased markings in the right infrahilar region, small infiltrate is possible.. Bowel gas pattern: Nonobstructive . Masses or calcifications: There are some vascular calcifications in the lower pelvis. . Bony structures: No acute osseous abnormality . Other: No free intraperitoneal air . IMPRESSION: Possible slight infiltrate in the right infrahilar region. The bowel gas pattern is nono bstructive.. This document is electronically signed by Stephanie Michael DO., February 11 2019 09:31:18 PM ET
--- NOTE | 2019-02-11 22:00 | Emergency Department Report ---
ED Abdominal Pain HPI - General Chief Complaint: Nausea/Vomiting/Diarrhea Stated Complaint: NVD Time Seen by Provider: 02/11/19 20:30 Source: patient Mode of arrival: Ambulatory Limitations: Physical Limitation - History of Present Illness Initial Comments: Mrs. Carrion is an 79 yo female with hx of HTN, GERD, bladder cancer s/p resection presents with diarrhea intermittent since Tuesday. Vomiting began today. The diarrhea has improved with her son's diarrhea medicine. Son has hx of diabetes. She is concerned for dehydration Denies fever or abdominal pain. PCP Dr. Mclean. -: Gradual Consistency: intermittent Context: possible food poisoning Associated Symptoms: nausea, vomiting Treatments Prior to Arrival: other (antidiarrheal medicine) - Related Data Home Medications Medication Instructions Recorded Confirmed Last Taken Atenolol/Chlorthalidone [Tenoretic 1 tab PO QAM 08/26/16 08/31/17 08/31/17 08:30 50-25] Gabapentin [Gralise] 200 mg PO TID 08/26/16 08/31/17 08/31/17 08:30 Omeprazole 20 mg PO QHS 08/26/16 08/31/17 08/31/17 08:30 ALBUTEROL Inhaler (OR & NICU) 2 puff IH QID PRN 03/24/17 08/31/17 03/29/17 [ProAir HFA Inhaler] HYDROcodone/HOMATROP 5-1.5 5 ml PO PRN PRN 08/25/17 08/25/17 Unknown [HYDROcodone-Homatropin 5-1.5 mg per 5 ML] Previous Rx's Medication Instructions Recorded Last Taken Type Benzonatate [Tessalon Perles] 100 mg PO PRN PRN #30 capsule 04/11/17 Unknown Rx LORazepam [Ativan] 1 mg PO QHS #15 tablet 04/11/17 Unknown Rx Lovastatin [Altoprev] 40 mg PO QHS #30 tab.er.24h 04/11/17 08/30/17 21:00 Rx Loperamide [Imodium] 2 tab PO QID 2 Days #16 capsule 02/12/19 Unknown Rx metroNIDAZOLE [Flagyl] 500 mg PO Q12HR 7 Days #14 tab 02/12/19 Unknown Rx Allergies Allergy/AdvReac Type Severity Reaction Status Date / Time No Known Allergies Allergy Verified 12/02/16 12:24 ED Review of Systems ROS: Stated complaint: NVD Other details as noted in HPI Comment: All other systems reviewed and negative Constitutional: denies: fever, malaise Respiratory: denies: cough Cardiovascular: denies: chest pain ED Past Medical Hx - Past Medical History Previous Medical History?: Yes Hx Hypertension: Yes (X 20 YRS) Hx GERD: Yes Hx Arthritis: Yes Hx Headaches / Migraines: Yes (MIGRAINES) Hx Asthma: Yes (INHALERS PRN) Additional medical history: acid reflux - Surgical History Past Surgical History?: Yes Additional Surgical History: bilateral knee replacement - Social History Smoking Status: Unknown if ever smoked Substance Use Type: None - Medications Home Medications: Home Medications Medication Instructions Recorded Confirmed Last Taken Type Atenolol/Chlorthalidone [Tenoretic 1 tab PO QAM 08/26/16 08/31/17 08/31/17 08:30 History 50-25] Gabapentin [Gralise] 200 mg PO TID 08/26/16 08/31/17 08/31/17 08:30 History Omeprazole 20 mg PO QHS 08/26/16 08/31/17 08/31/17 08:30 History ALBUTEROL Inhaler (OR & NICU) 2 puff IH QID PRN 03/24/17 08/31/17 03/29/17 History [ProAir HFA Inhaler] Benzonatate [Tessalon Perles] 100 mg PO PRN PRN #30 capsule 04/11/17 08/25/17 Unknown Rx LORazepam [Ativan] 1 mg PO QHS #15 tablet 04/11/17 08/25/17 Unknown Rx Lovastatin [Altoprev] 40 mg PO QHS #30 tab.er.24h 04/11/17 08/31/17 08/30/17 21:00 Rx HYDROcodone/HOMATROP 5-1.5 5 ml PO PRN PRN 08/25/17 08/25/17 Unknown History [HYDROcodone-Homatropin 5-1.5 mg per 5 ML] Loperamide [Imodium] 2 tab PO QID 2 Days #16 capsule 02/12/19 Unknown Rx metroNIDAZOLE [Flagyl] 500 mg PO Q12HR 7 Days #14 tab 02/12/19 Unknown Rx ED Physical Exam - General Limitations: Physical Limitation General appearance: alert, in no apparent distress, other (well-appearing healthy alert articulate) - Head Head exam: Present: atraumatic, normocephalic - Eye Eye exam: Present: normal appearance - ENT ENT exam: Present: mucous membranes moist - Neck Neck exam: Present: normal inspection, full ROM - Respiratory Respiratory exam: Present: normal lung sounds bilaterally. Absent: respiratory distress, wheezes, rales, rhonchi - Cardiovascular Cardiovascular Exam: Present: regular rate, normal rhythm, normal heart sounds. Absent: systolic murmur, diastolic murmur, rubs, gallop - GI/Abdominal GI/Abdominal exam: Present: soft, normal bowel sounds. Absent: distended, tenderness, guarding, rebound - Extremities Exam Extremities exam: Present: normal inspection - Back Exam Back exam: Present: normal inspection - Neurological Exam Neurological exam: Present: alert, oriented X3 - Psychiatric Psychiatric exam: Present: normal affect, normal mood - Skin Skin exam: Present: warm, dry, intact, normal color. Absent: rash ED Course Vital Signs 02/11/19 02/11/19 02/11/19 20:18 20:30 21:26 Temperature 98.5 F 98.5 F Pulse Rate 91 H 86 Respiratory 18 18 20 Rate Blood Pressure 176/71 176/71 Blood Pressure [Left] O2 Sat by Pulse 96 96 Oximetry 02/12/19 00:15 Temperature 97.8 F Pulse Rate 74 Respiratory 22 Rate Blood Pressure Blood Pressure 166/63 [Left] O2 Sat by Pulse 95 Oximetry ED Medical Decision Making - Lab Data Result diagrams: 02/11/19 20:43 02/11/19 20:43 - Radiology Data Radiology results: report reviewed Multiple air-fluid levels in the bowel concerning for ileus versus enteritis - Medical Decision Making Ms. Carrion also presents with nausea vomiting diarrhea. Evidence of dehy dration with hypo-mature uremia hypochloremia. Elevated white count 12,000. CT indicates likely intra-abdominal infection. Prescribed loperamide and metronidazole. Received IV fluid hydration. Mrs. Carrion appears well on physical exam. She understands return precautions. She understands the need for continued hydration. Critical care attestation.: If time is entered above; I have spent that time in minutes in the direct care of this critically ill patient, excluding procedure time. ED Disposition Clinical Impression: Infectious colitis, Infectious enteritis, Dehydration Disposition: DC-01 TO HOME OR SELFCARE Is pt being admited?: No Does the pt Need Aspirin: No Condition: Stable Instructions: Acute Diarrhea (ED) Prescriptions: metroNIDAZOLE [Flagyl] 500 mg PO Q12HR 7 Days #14 tab Loperamide [Imodium] 2 tab PO QID 2 Days #16 capsule
--- NOTE | 2019-02-12 00:36 | Cat Scan Report ---
PROCEDURE: CT ABDOMEN PELVIS W CON TECHNIQUE: Routine axial imaging was obtained of the abdomen and pelvis following the intravenous in jection of IV contrast. Delayed imaging was obtained through the kidneys ureters and bladder. Sagitta l and coronal reconstructions were reviewed. HISTORY: diarrhea elevated white count COMPARISONS: None FINDINGS: The lung bases are clear. Pleural fluid is not seen. The liver, gallbladder, biliary tree, and spleen appear normal. The pancreas is atrophic. There is a 1 cm cyst in the body of the pancreas. The adrenal glands appear normal. The kidneys enhance normally . There is no evidence of hydronephrosis. The bowel loops are not distended. There are multiple small air-fluid levels within small bowel and l arge bowel loops. A mild ileus cannot be stated. The appendix is not seen. There is no evidence of an y inflammatory process in the right upper quadrant. In the pelvis the uterus and bladder appear ponce l. There is no evidence of adenopathy. The skeletal structures reveal extensive multilevel disc degen eration in the lower thoracic and lumbar spine. IMPRESSION: Multiple nondistended loops of small bowel and large bowel with air-fluid levels. A nonobstructive il eus/enteritis cannot be excluded. Appendix not identified. No evidence of any inflammatory process in the right lower quadrant. Nonspecific 1 cm cyst in the body of the pancreas. Extensive multilevel disc degeneration in the lower thoracic and lumbar spine... This document is electronically signed by Bull Ashford MD., February 12 2019 12:33:47 AM ET
[2019-02-12 01:03] VITALS: BP 166/63
[2019-02-12] MEDS ORDERED: IMODIUM PO ONE (01:15)
[2019-02-12] MEDS ORDERED: FLAGYL PO ONE (01:15)
== END 2019-02-12 02:13 | disposition home or self-care (01) ==
LOC: ED 20:00
DX: E86.0 Dehydration (principal); A09 Infectious gastroenteritis and colitis, unspecified; I10 Essential (primary) hypertension; K21.9 Gastro-esophageal reflux disease without esophagitis; M19.90 Unspecified osteoarthritis, unspecified site; G43.909 Migraine, unspecified, not intractable, without status migrainosus; J45.909 Unspecified asthma, uncomplicated; Z79.899 Other long term (current) drug therapy
CPT/HCPCS: 36415; 74022; 74177; 80053; 81001; 83690; 85025; 96360; 96361; 99284; J7030; Q9967; Q0162

== ENCOUNTER 2019-07-15 16:39 | Emergency (ER) | payer MEDICARE ==
--- NOTE | 2019-07-15 18:08 | Event Note ---
ED Screening Note Date of service: 07/15/19 Time: 18:06 ED Screening Note: 79 y/o female comes in for Headache and elevated blood pressure time today. This initial assessment/diagnostic orders/clinical plan/treatment(s) is/are subject to change based on patients health status, clinical progression and re- assessment by fellow clinical providers in the ED. Further treatment and workup at subsequent clinical providers discretion. Patient/guardian urged not to elope from the ED as their condition may be serious if not clinically assessed and managed. Initial orders include:
--- NOTE | 2019-07-15 19:22 | XRay Report ---
CHEST 2 VIEWS INDICATION: cough. COMPARISON: 04/08/2017 FINDINGS: Support devices: None. Heart: Within normal limits. Lungs: Bronchovascular markings are prominent. No acute air space or interstitial disease. Pleura: No significant pleural effusion. No pneumothorax. Additional findings: None. IMPRESSION: 1. No acute findings and no interval change as compared to previous exam. Signer Name: Norris Franco MD Signed: 07/15/2019 7:17 PM Workstation Name: [id number]
--- NOTE | 2019-07-15 20:16 | Emergency Department Report ---
ED General Adult HPI - General Chief complaint: Headache Stated complaint: HIGH BP Time Seen by Provider: 07/15/19 18:06 Source: patient Mode of arrival: Ambulatory Limitations: No Limitations - History of Present Illness Initial comments: 2-year-old female history of asthma, arthritis and hypertension presents with the complaint of a headache. Patient states that her blood pressure and high related. Patient states she went to the fire station because of a headache and her blood pressure 200/160. Patient states she was then sent to [facility] who then referred her here to the ER. Upon arrival here patient denies any chest pain. Patient has a BP of 140/80 upon arrival here in the ER. Patient has no complaints of focal weakness or slurred speech. Patient denies any headache at current time. Patient has a stable creatinine from January 2019 which was 0.9. - Related Data Home Medications Medication Instructions Recorded Confirmed Last Taken Atenolol/Chlorthalidone [Tenoretic 1 tab PO QAM 08/26/16 08/31/17 08/31/17 08:30 50-25] Gabapentin [Gralise] 200 mg PO TID 08/26/16 08/31/17 08/31/17 08:30 Omeprazole 20 mg PO QHS 08/26/16 08/31/17 08/31/17 08:30 ALBUTEROL Inhaler (OR & NICU) 2 puff IH QID PRN 03/24/17 08/31/17 03/29/17 [ProAir HFA Inhaler] HYDROcodone/HOMATROP 5-1.5 5 ml PO PRN PRN 08/25/17 08/25/17 Unknown [HYDROcodone-Homatropin 5-1.5 mg per 5 ML] Previous Rx's Medication Instructions Recorded Last Taken Type Benzonatate [Tessalon Perles] 100 mg PO PRN PRN #30 capsule 04/11/17 Unknown Rx LORazepam [Ativan] 1 mg PO QHS #15 tablet 04/11/17 Unknown Rx Lovastatin [Altoprev] 40 mg PO QHS #30 tab.er.24h 04/11/17 08/30/17 21:00 Rx Loperamide [Imodium] 2 tab PO QID 2 Days #16 capsule 02/12/19 Unknown Rx Ondansetron [Zofran Odt] 4 mg PO Q8HR PRN #10 tab.rapdis 02/12/19 Unknown Rx metroNIDAZOLE [Flagyl] 500 mg PO Q12HR 7 Days #14 tab 02/12/19 Unknown Rx Allergies Allergy/AdvReac Type Severity Reaction Status Date / Time No Known Allergies Allergy Verified 12/02/16 12:24 ED Review of Systems ROS: Stated complaint: HIGH BP Other details as noted in HPI Constitutional: denies: chills, fever Eyes: denies: eye pain, eye discharge, vision change ENT: denies: ear pain, throat pain Respiratory: denies: cough, shortness of breath, wheezing Cardiovascular: denies: chest pain, palpitations Endocrine: no symptoms reported Gastrointestinal: denies: abdominal pain, nausea, diarrhea Genitourinary: denies: urgency, dysuria, discharge Musculoskeletal: denies: back pain, joint swelling, arthralgia Skin: denies: rash, lesions Neurological: denies: headache Psychiatric: denies: anxiety, depression Hematological/Lymphatic: denies: easy bleeding, easy bruising ED Past Medical Hx - Past Medical History Previous Medical History?: Yes Hx Hypertension: Yes (X 20 YRS) Hx GERD: Yes Hx Arthritis: Yes Hx Headaches / Migraines: Yes (MIGRAINES) Hx Asthma: Yes (INHALERS PRN) Additional medical history: acid reflux - Surgical History Past Surgical History?: Yes Additional Surgical History: bilateral knee replacement - Social History Smoking Status: Former Smoker Substance Use Type: None - Medications Home Medications: Home Medications Medication Instructions Recorded Confirmed Last Taken Type Atenolol/Chlorthalidone [Tenoretic 1 tab PO QAM 08/26/16 08/31/17 08/31/17 08:30 History 50-25] Gabapentin [Gralise] 200 mg PO TID 08/26/16 08/31/17 08/31/17 08:30 History Omeprazole 20 mg PO QHS 08/26/16 08/31/17 08/31/17 08:30 History ALBUTEROL Inhaler (OR & NICU) 2 puff IH QID PRN 03/24/17 08/31/17 03/29/17 History [ProAir HFA Inhaler] Benzonatate [Tessalon Perles] 100 mg PO PRN PRN #30 capsule 04/11/17 08/25/17 Unknown Rx LORazepam [Ativan] 1 mg PO QHS #15 tablet 04/11/17 08/25/17 Unknown Rx Lovastatin [Altoprev] 40 mg PO QHS #30 tab.er.24h 04/11/17 08/31/17 08/30/17 21:00 Rx HYDROcodone/HOMATROP 5-1.5 5 ml PO PRN PRN 08/25/17 08/25/17 Unknown History [HYDROcodone-Homatropin 5-1.5 mg per 5 ML] Loperamide [Imodium] 2 tab PO QID 2 Days #16 capsule 02/12/19 Unknown Rx Ondansetron [Zofran Odt] 4 mg PO Q8HR PRN #10 tab.rapdis 02/12/19 Unknown Rx metroNIDAZOLE [Flagyl] 500 mg PO Q12HR 7 Days #14 tab 02/12/19 Unknown Rx ED Physical Exam - General Limitations: No Limitations General appearance: alert, in no apparent distress - Head Head exam: Present: atraumatic, normocephalic - Eye Eye exam: Present: normal appearance - ENT ENT exam: Present: mucous membranes moist - Neck Neck exam: Present: normal inspection - Respiratory Respiratory exam: Present: wheezes (faint wheezing appreciated in bases of lungs). Absent: respiratory distress, accessory muscle use - Cardiovascular Cardiovascular Exam: Present: regular rate, normal rhythm. Absent: systolic murmur, diastolic murmur, rubs, gallop - GI/Abdominal GI/Abdominal exam: Present: soft, normal bowel sounds - Extremities Exam Extremities exam: Present: normal inspection - Back Exam Back exam: Present: normal inspection - Neurological Exam Neurological exam: Present: alert, oriented X3 - Psychiatric Psychiatric exam: Present: normal affect, normal mood - Skin Skin exam: Present: warm, dry, intact, normal color. Absent: rash ED Course Vital Signs 07/15/19 07/15/19 17:56 21:34 Temperature 98.0 F 98.1 F Pulse Rate 65 80 Respiratory 18 18 Rate Blood Pressure 140/80 Blood Pressure 178/71 [Left] O2 Sat by Pulse 95 95 Oximetry ED Medical Decision Making - Medical Decision Making Patient's blood pressure. Emergency Department is 158/71. Patient's prior lab work showed no evidence of elevation of creatinine and patient has a normal neurologic exam while here in the emergency department. Patient to be discharged to follow-up with her PCP . Patient was given metoprolol 50 mg therapy while in the ER. - Differential Diagnosis HTN; Headache, non specific; Critical care attestation.: If time is entered above; I have spent that time in minutes in the direct care of this critically ill patient, excluding procedure time. ED Disposition Clinical Impression: Hypertension Disposition: DC- TO HOME OR SELFCARE Is pt being admited?: No Condition: Stable Instructions: Hypertension (ED) Referrals: RICH GARRETT MD [Primary Care Provider] - 3-5 Days Time of Disposition: 21:31 Print Language: [place]
[2019-07-15 21:35] VITALS: BP 178/71
[2019-07-15] MEDS ORDERED: TOPROL XL PO ONE (21:35)
== END 2019-07-15 22:46 | disposition home or self-care (01) ==
LOC: ED 16:39
DX: I10 Essential (primary) hypertension (principal); J45.909 Unspecified asthma, uncomplicated; M19.90 Unspecified osteoarthritis, unspecified site; K21.9 Gastro-esophageal reflux disease without esophagitis; G43.909 Migraine, unspecified, not intractable, without status migrainosus; Z96.653 Presence of artificial knee joint, bilateral; Z79.899 Other long term (current) drug therapy; Z87.891 Personal history of nicotine dependence
CPT/HCPCS: 71046; 99283

== ENCOUNTER 2020-07-07 18:43 | Emergency (ER) | payer MEDICARE ==
--- NOTE | 2020-07-07 19:33 | Emergency Department Report ---
Blank Doc - Documentation Documentation: 80-year-old female that presents with left shoulder pain and left wrist pain s/p trip and fall. Denies any head injuries or neck or back pains. This initial assessment/diagnostic orders/clinical plan/treatment(s) is/are subject to change based on patient's health status, clinical progression and re- assessment by fellow clinical providers in the ED. Further treatment and workup at subsequent clinical providers discretion. Patient/guardians urged not to elope from the ED as their condition may be serious if not clinically assessed and managed. Initial orders include: 1- Patient sent to MAIN ED for further evaluation and treatment 2- xrays
[2020-07-07] MEDS ORDERED: HYDROcodone/ACETAMINOPHEN 5-325 MG TAB PO ONE (19:46)
[2020-07-07] MEDS ORDERED: MORPHINE 4 MG/1 ML INJ IV ONE (20:48)
--- NOTE | 2020-07-07 20:50 | Emergency Department Report ---
ED General Adult HPI - General Chief complaint: Fall Stated complaint: FALL PUI?: No Time Seen by Provider: 07/07/20 19:31 Source: patient, RN notes reviewed Mode of arrival: Ambulatory Limitations: No Limitations, Physical Limitation - History of Present Illness Initial comments: Primary care doctor: Past medical history: Obesity, COPD, arthritis, migraines, hypertension, Patient is an 80-year-old female. She is right-hand dominant. She presents to the ER after mechanical trip and fall. Patient was walking in flip-flops earlier on this afternoon, when her flip-flops caught, and she fell, and "landed all over my left side." She is not sure if she hit her head. She has sharp throbbing aching left-sided shoulder pain. She has mild left elbow and wrist pain, but this is not significant. She denies neck pain and c hest pain. She has chronic shortness of breath. She has chronic lower extremity edema. She denies focal extremity weakness and or numbness. She denies irritative and obstructive urinary symptoms. -: Sudden Location: left, upper extremity Severity scale (0 -10): 10 Quality: aching Consistency: constant Improves with: rest Worsens with: movement - Related Data Home Medications Medication Instructions Recorded Confirmed Last Taken Atenolol/Chlorthalidone [Tenoretic 1 tab PO QAM 08/26/16 08/31/17 08/31/17 08:30 50-25] Gabapentin [Gralise] 200 mg PO TID 08/26/16 08/31/17 08/31/17 08:30 Omeprazole 20 mg PO QHS 08/26/16 08/31/17 08/31/17 08:30 Albuterol Mdi (or & Nicu Only) 2 puff IH QID PRN 03/24/17 08/31/17 03/29/17 [ProAir HFA Inhaler] Previous Rx's Medication Instructions Recorded Last Taken Type Benzonatate [Tessalon Perles] 100 mg PO PRN PRN #30 capsule 04/11/17 Unknown Rx Lovastatin [Altoprev] 40 mg PO QHS #30 tab.er.24h 04/11/17 08/30/17 21:00 Rx Loperamide [Imodium] 2 tab PO QID 2 Days #16 capsule 02/12/19 Unknown Rx Ondansetron [Zofran Odt] 4 mg PO Q8HR PRN #10 tab.rapdis 02/12/19 Unknown Rx metroNIDAZOLE [Flagyl] 500 mg PO Q12HR 7 Days #14 tab 02/12/19 Unknown Rx Acetaminophen [Non-Aspirin Extra 500 mg PO Q6HR PRN #30 tablet 07/08/20 Unknown Rx Strength] Albuterol Sulfate [Proair 90 mcg IH Q4HR PRN #2 aer.pow.ba 07/08/20 Unknown Rx Respiclick] Furosemide [Lasix] 20 mg PO QDAY #7 tablet 07/08/20 Unknown Rx Magnesium Oxide 400 mg PO QDAY #30 tablet 07/08/20 Unknown Rx Morphine Sulfate [Morphine Sulfate 7.5 mg PO Q6HR PRN #10 tablet 07/08/20 Unknown Rx IR] Allergies Allergy/AdvReac Type Severity Reaction Status Date / Time No Known Allergies Allergy Verified 12/02/16 12:24 ED Review of Systems ROS: Stated complaint: FALL Other details as noted in HPI Constitutional: denies: fever Eyes: denies: eye discharge ENT: denies: epistaxis, congestion Respiratory: cough, shortness of breath (Chronic cough, chronic shortness of breath) Cardiovascular: edema (Chronic lower extremity edema). denies: chest pain Gastrointestinal: denies: abdominal pain Musculoskeletal: joint swelling, arthralgia, myalgia Neurological: weakness (Global weakness) Psychiatric: anxiety ED Past Medical Hx - Past Medical History Previous Medical History?: Yes Hx Hypertension: Yes (X 20 YRS) Hx GERD: Yes Hx Arthritis: Yes Hx Headaches / Migraines: Yes (MIGRAINES) Hx Asthma: Yes (INHALERS PRN) Additional medical history: acid reflux - Surgical History Past Surgical History?: Yes Additional Surgical History: bilateral knee replacement - Social History Smoking Status: Never Smoker Substance Use Type: None - Medications Home Medications: Home Medications Medication Instructions Recorded Confirmed Last Taken Type Atenolol/Chlorthalidone [Tenoretic 1 tab PO QAM 08/26/16 08/31/17 08/31/17 08:30 History 50-25] Gabapentin [Gralise] 200 mg PO TID 08/26/16 08/31/17 08/31/17 08:30 History Omeprazole 20 mg PO QHS 08/26/16 08/31/17 08/31/17 08:30 History Albuterol Mdi (or & Nicu Only) 2 puff IH QID PRN 03/24/17 08/31/17 03/29/17 History [ProAir HFA Inhaler] Benzonatate [Tessalon Perles] 100 mg PO PRN PRN #30 capsule 04/11/17 08/25/17 Unknown Rx Lovastatin [Altoprev] 40 mg PO QHS #30 tab.er.24h 04/11/17 08/31/17 08/30/17 21:00 Rx Loperamide [Imodium] 2 tab PO QID 2 Days #16 capsule 02/12/19 Unknown Rx Ondansetron [Zofran Odt] 4 mg PO Q8HR PRN #10 tab.rapdis 02/12/19 Unknown Rx metroNIDAZOLE [Flagyl] 500 mg PO Q12HR 7 Days #14 tab 02/12/19 Unknown Rx Acetaminophen [Non-Aspirin Extra 500 mg PO Q6HR PRN #30 tablet 07/08/20 Unknown Rx Strength] Albuterol Sulfate [Proair 90 mcg IH Q4HR PRN #2 aer.pow.ba 07/08/20 Unknown Rx Respiclick] Furosemide [Lasix] 20 mg PO QDAY #7 tablet 07/08/20 Unknown Rx Magnesium Oxide 400 mg PO QDAY #30 tablet 07/08/20 Unknown Rx Morphine Sulfate [Morphine Sulfate 7.5 mg PO Q6HR PRN #10 tablet 07/08/20 Unknown Rx IR] ED Physical Exam - General Limitations: Physical Limitation General appearance: alert, in distress, obese - Head Head exam: Present: atraumatic, normocephalic - Eye Eye exam: Present: normal appearance, EOMI. Absent: nystagmus - ENT ENT exam: Present: normal exam, normal orophraynx, mucous membranes moist, normal external ear exam - Neck Neck exam: Present: normal inspection, full ROM. Absent: tenderness, meningismu s - Respiratory Respiratory exam: Present: normal lung sounds bilaterally, rhonchi (Very faint rhonchi are appreciated). Absent: respiratory distress, rales, stridor - Cardiovascular Cardiovascular Exam: Present: regular rate, normal heart sounds. Absent: bradycardia, tachycardia, systolic murmur, diastolic murmur, rubs, gallop - GI/Abdominal GI/Abdominal exam: Present: soft, normal bowel sounds. Absent: distended, tenderness, guarding, rebound, rigid, pulsatile mass - Extremities Exam Extremities exam: Present: normal inspection, pedal edema, joint swelling, other (2+ pulses noted in the bilateral upper and lower extremities. 3+ edema noted in the bilateral lower extremities. There is no pelvic tenderness. There is no pelvic instability. Patient able to weight-bear with assistance. There is no right upper extremity tenderness. Left upper extremity is point tender to the left shoulder. There is no wrist, snuffbox, or elbow tenderness. Thumb opposition, finger desulfurizer hand and extension are intact in the bilateral upper extrem ities. Sensation is intact to light touch in the deltoid, median, ulnar distribution. Range of motion intact of the right arm, and bilateral lower extremities. Range of motion limited in the left upper extremity secondary to left shoulder pain) - Back Exam Back exam: Present: normal inspection. Absent: tenderness, CVA tenderness (R), CVA tenderness (L), paraspinal tenderness, vertebral tenderness - Neurological Exam Neurological exam: Present: alert, oriented X3, other (No facial droop. Tongue midline. Extraocular movements intact bilaterally. Facial sensation intact to light touch in V1, V2, V3 distribution bilaterally. 5 and a 5 strength in 4 extremities. Sensation intact to light touch in 4 extremities.) - Psychiatric Psychiatric exam: Present: anxious - Skin Skin exam: Present: warm, dry, intact, normal color. Absent: rash ED Course Vital Signs 07/07/20 07/07/20 07/07/20 19:32 20:08 20:27 Temperature 97.5 F L Pulse Rate 67 68 Respiratory 20 18 18 Rate Blood Pressure 207/80 Blood Pressure 168/108 [Left] O2 Sat by Pulse 95 98 Oximetry 07/07/20 07/07/20 07/07/20 21:27 22:08 22:13 Temperature Pulse Rate 58 L 62 Respiratory 18 20 18 Rate Blood Pressure Blood Pressure 149/80 [Left] O2 Sat by Pulse 97 Oximetry 07/07/20 07/07/20 07/07/20 22:26 23:19 23:54 Temperature 97.6 F Pulse Rate 65 Respiratory 18 16 Rate Blood Pressure Blood Pressure 126/81 [Left] O2 Sat by Pulse 93 Oximetry - Reevaluation(s) Reevaluation #1: 07/07/20 21:06 Differential diagnosis, including but not limited to: Fracture, dislocation, sprain, strain, closed head injury, COPD, CHF Assessment and plan: 80-year-old female status post mechanical fall, with a GCS of 15, no cervical spine pain or tenderness, patient is clinically sober at this time. The cervical spine is cleared through nexus and ukrainian c spine rule, who is examinable, with what appears to be an isolated left proximal humerus fracture, without obvious dislocation, and what appears to be chronic edema, and chronic COPD. Given uncertainty as to whether or not patient hit her head as she cannot tell me with certainty, we will obtain CT scan of the brain. X-ray of the wrist, elbow pending. X-ray of the chest pending. EKG demonstrates normal sinus rhythm. Check CBC, appropriate laboratory studies, give albuterol, pain medication, consider low-dose diuretic, and reassess. Elevated blood pressure reviewed and appreciated, likely secondary to pain, patient also has a history of chronic hypertension. Please reference the [employer] clinical policy on hypertension which is not acutely symptomatic or decompensated. 07/07/20 21:12 of note, patient is able to ambulate with assistance, she lives at home with her , and she also endorses that her children live in the same building. Reevaluation #2: 07/07/20 21:30 X-ray of the left wrist is negative for acute findings. Noncontrast CT scan of the brain is negative for acute findings on my interpretation. Formal radiology interpretation is pending at this time. Reevaluation #3: 07/08/20 00:12 CT scan of the brain negative for acute disease. X-ray of the chest negative for acute disease. X-ray of the left humerus shows proximal humerus fracture, x-ray of the left elbow shows a left radial head fracture with hemarthrosis. X-ray of the wrist is negative for acute findings. Patient medicated ap propriately, laboratory studies are reviewed and appreciated. She does not have accessory muscle use at this time. Leukocytosis is likely a stress reaction, likely secondary to pain of the aforementioned fractures. Patient's history, physical, and radiographic studies were discussed with orthopedics on-call, Dr. Whitney Zuniga. He personally reviewed the films of the patient's left humerus and left elbow. He advises that the patient can be placed in a sling, or shoulder immobilizer, and that she can follow-up with him as an outpatient. Hypomagnesemia was addressed. Patient states that she feels "okay" to go home, her family will come by and pick her up. She has not had significant desaturation, and she is reliable to follow-up. Advanced age and medical comorbidities are reviewed and appreciated, however, she is ambulatory with minimal assistance, she has family at home who can help her out, and from a medical comorbid standpoint, she does not appear to be acutely decompensated. Breath sounds are clear to auscultation at this time. Saturating at 95, 94% on room air at this time. 07/08/20 00:20 ED Medical Decision Making - Lab Data Result diagrams: 07/07/20 21:02 07/07/20 21:02 Vital Signs 07/07/20 07/07/20 07/07/20 19:32 20:08 20:27 Temperature 97.5 F L Pulse Rate 67 68 Respiratory 20 18 18 Rate Blood Pressure 207/80 Blood Pressure 168/108 [Left] O2 Sat by Pulse 95 98 Oximetry - EKG Data EKG shows normal: sinus rhythm Rate: normal - EKG Data 07/07/20 21:06 EKG today shows a sinus rhythm, 61 bpm, normal axis, QTC prolonged, left v entricular hypertrophy, abnormal EKG, not a STEMI - Radiology Data Radiology results: pending, report reviewed, image reviewed Print Report Referring Physician: SONYA DALEY Patient Name: CJ SHAH Date of : 1940 Sex: Female Report Date: 2020-07-07 Report Status: Finalized Findings [address] [address] XRay Report Signed Patient: CJ SHAH MR# : [id number] : 1940 Acct:[id number] Age/Sex: 80 / F ADM Date: 07/07/20 Loc: ED Attending Dr: Ordering Physician: SONYA DALEY NP Date of Service: 07/07/20 Procedure(s): XR shoulder 2+V LT Accession Number(s): [id number] cc: SONYA DALEY NP Fluoro Time In Minutes: LEFT SHOULDER 3 VIEW(S) INDICATION / CLINICAL INFORMATION: pain s/p fall COMPARISON: None available. FINDINGS: BONES / JOINT(S): There is a comminuted moderately displaced fracture involving the surgical neck and greater tuberosity of left proximal humerus. No significant arthritis. SOFT TISSUES: No significant abnormality. ADDITIONAL FINDINGS: None. Signer Name: Du Emerson MD Signed: 07/07/2020 8:58 PM Workstation Name: [id number] Transcribed By: TL Dictated By: Du Emerson MD Electronically Authenticated By: Du Emerson MD Signed Date/Time: 07/07/202057 DD/ 56 Print Report Referring Physician: LIYA ENCARNACION Patient Name: CJ SHAH Date of : 1940 Sex: Female Report Date: 2020-07-07 Report Status: [place] [address] XRay Report Signed Patient: CJ SHAH MR# : [id number] : 1940 Acct:[id number] Age/Sex: 80 / F ADM Date: 07/07/20 Loc: ED Attending Dr: Ordering Physician: LIYA ENCARNACION MD Date of Service: 07/07/20 Procedure(s): XR chest 1V ap Accession Number(s): [id number] cc: LIYA ENCARNACION MD Fluoro Time In Minutes: CHEST 1 VIEW 07/07/2020 9:26 PM INDICATION / CLINICAL INFORMATION: chronic dyspnea, copd lower ext swelling. COMPARISON: Chest x-ray 07/15/2019 FINDINGS: SUPPORT DEVICES: None. HEART / MEDIASTINUM: No significant abnormality. LUNGS / PLEURA: No significant pulmonary or pleural abnormality. No pneumothorax. ADDITIONAL FINDINGS: No significant additional findings. IMPRESSION: 1. No acute findings. Signer Name: Du Emerson MD Signed: 07/07/2020 10:29 PM Workstation Name: [id number] Transcribed By: TL Dictated By: Du Emerson MD Electronically Authenticated By: Du Emerson MD Signed Date/Time: 07/07/202228 DD/ 27 TD/TT: Print Report Referring Physician: LIYA ENCARNACION Patient Name: CJ SHAH Date of : 1940 Sex: Female Report Date: 2020-07-07 Report Status: Finalized Findings [address] [address] XRay Report Signed Patient: CJ SHAH MR# : [id number] : 1940 Acct:[id number] Age/Sex: 80 / F ADM Date: 07/07/20 Loc: ED Attending Dr: Ordering Physician: LIYA ENCARNACION MD Date of Service: 07/07/20 Procedure(s): XR elbow 2V LT Accession Number(s): [id number] cc: LIYA ENCARNACION MD Fluoro Time In Minutes: LEFT ELBOW 2 VIEW(S) INDICATION / CLINICAL INFORMATION: left arm pain fall COMPARISON: None available. FINDINGS: BONES / JOINT(S): Acute mildly displaced fracture involving the radial head and neck with elbow hemarthrosis and displacement of both anterior and posterior elbow fat pads No significant arthritis. SOFT TISSUES: No significant abnormality. ADDITIONAL FINDINGS: None. Signer Name: Du Emerson MD Signed: 07/07/2020 10:29 PM Workstation Name: [id number] Transcribed By: TL Dictated By: Du Emerson MD Electronically Authenticated By: Du Emerson MD Signed Date/Time: 07/07/202228 DD/ 28 Print Report Referring Physician: SONYA DALEY Patient Name: CJ SHAH Date of : 1940 Sex: Female Report Date: 2020-07-07 Report Status: Finalized Findings [address] [address] XRay Report Signed Patient: CJ SHAH MR# : [id number] : 1940 Acct:[id number] Age/Sex: 80 / F ADM Date: 07/07/20 Loc: ED Attending Dr: Ordering Physician: SONYA DALEY NP Date of Service: 07/07/20 Procedure(s): XR wrist 3+V LT Accession Number(s): [id number] cc: JODY VALERIO Time In Minutes: LEFT WRIST 3 VIEW(S) INDICATION / CLINICAL INFORMATION: pain s/p fall COMPARISON: None available. FINDINGS: BONES / JOINT(S): No acute fracture or subluxation. Moderate degenerative arthrosis distal radioulnar and thumb CMC joints. SOFT TISSUES: No significant abnormality. ADDITIONAL FINDINGS: None. Signer Name: Du Emerson MD Signed: 07/07/2020 9:11 PM Workstation Name: [id number] Transcribed By: TL Dictated By: Du Emerson MD Electronically Authenticated By: Du Emerson MD Signed Date/Time: 07/07/202110 Critical care attestation.: If time is entered above; I have spent that time in minutes in the direct care of this critically ill patient, excluding procedure time. ED Disposition Clinical Impression: History of fall, Hypomagnesemia, Dependent edema Closed fracture of left proximal humerus Qualifiers: Encounter type: initial encounter Fracture morphology: unspecified fracture morphology Qualified Code(s): S42.202A - Unspecified fracture of upper end of left humerus, initial encounter for closed fracture Left radial head fracture Qualifiers: Encounter type: initial encounter Fracture type: closed Reactive airway disease Qualifiers: Asthma severity: mild Asthma persistence: intermittent Asthma complication type: uncomplicated Qualified Code(s): J45.20 - Mild intermittent asthma, uncomplicated Disposition: DC- TO HOME OR SELFCARE Is pt being admited?: No Does the pt Need Aspirin: No Condition: Good Additional Instructions: Please continue current outpatient medications. Patient may take [id number] Tylenol, alternating with bwoc-xfv-[id number] ibuprofen as needed for pain. Take the morphine sulfate as needed for extreme breakthrough pain. If taking the morphine sulfate, do not drive, consume alcohol, or make important decisions. Take the magnesium supplementation as directed, Lasix water pill as directed, patient may benefit from purchasing pzme-[id number] compression stockings for lower extremity swelling, she can purchase these at most [id number] pharmacies, such as [facility] Patient should keep the left upper extremity in the shoulder immobilizer, and follow-up with an orthopedist, such as Dr. Zuniga, within the next 5 days. Please follow-up with primary medical doctor for chronic medical conditions within the next week. Please return to the emergency room right away with new pain, worsening pain, migration of pain, projectile vomiting, change in mental status, confusion, inability to tolerate liquid feeds. Weightbearing as tolerated, physical activities as tolerated, no heavy lifting or strenuous physical activity for the left upper extremity whatsoever. Prescriptions: Furosemide [Lasix] 20 mg PO QDAY #7 tablet Magnesium Oxide 400 mg PO QDAY #30 tablet Morphine Sulfate [Morphine Sulfate IR] 7.5 mg PO Q6HR PRN #10 tablet PRN Reason: Pain , Severe (7-10) Acetaminophen [Non-Aspirin Extra Strength] 500 mg PO Q6HR PRN #30 tablet PRN Reason: Pain , Severe (7-10) Albuterol Sulfate [Proair Respiclick] 90 mcg IH Q4HR PRN #2 aer.pow.ba PRN Reason: Wheezing Referrals: YUNG MILLS MD [Primary Care Provider] - 3-5 Days WHITNEY ZUNIGA MD [Staff Physician] - 3-5 Days
--- NOTE | 2020-07-07 21:02 | XRay Report ---
LEFT SHOULDER 3 VIEW(S) INDICATION / CLINICAL INFORMATION: pain s/p fall COMPARISON: None available. FINDINGS: BONES / JOINT(S): There is a comminuted moderately displaced fracture involving the surgical neck and greater tuberosity of left proximal humerus. No significant arthritis. SOFT TISSUES: No significant abnormality. ADDITIONAL FINDINGS: None. Signer Name: Du Emerson MD Signed: 07/07/2020 8:58 PM Workstation Name: [id number]
[2020-07-07] MEDS ORDERED: IPRATROPIUM/ALBUTEROL SULFATE 3 ML AMPUL.NEB IH STA (21:08)
[2020-07-07] MEDS ORDERED: ATENOLOL PO STA (21:13)
[2020-07-07] MEDS ORDERED: CHLORTHALIDONE PO STA (21:13)
--- NOTE | 2020-07-07 21:15 | XRay Report ---
LEFT WRIST 3 VIEW(S) INDICATION / CLINICAL INFORMATION: pain s/p fall COMPARISON: None available. FINDINGS: BONES / JOINT(S): No acute fracture or subluxation. Moderate degenerative arthrosis distal radioulnar and thumb CMC joints. SOFT TISSUES: No significant abnormality. ADDITIONAL FINDINGS: None. Signer Name: Du Emerson MD Signed: 07/07/2020 9:11 PM Workstation Name: [id number]
[2020-07-07] MEDS ORDERED: CHLORTHALIDONE 25 MG TAB PO STA (21:16)
[2020-07-07] MEDS ORDERED: atenoloL 50 MG TAB PO STA (21:16)
[2020-07-07 21:36] LABS: Hematocrit 37.8 % (30.3-42.9); Hemoglobin 12.6 gm/dl (10.1-14.3); Mean Corpuscular HGB Conc 33 % (30-34); Mean Corpuscular Volume 90 fl (79-97); Platelet Count 303 K/mm3 (140-440); Red Blood Count 4.21 M/mm3 (3.65-5.03); Red Cell Distribution Width 14.2 % (13.2-15.2)
--- NOTE | 2020-07-07 21:44 | Cat Scan Report ---
CT head/brain wo con INDICATION / CLINICAL INFORMATION: 80 years Female; fall closed head injury. TECHNIQUE: Routine CT head without contrast. All CT scans at this location are performed using CT dos e reduction for ALARA by means of automated exposure control. COMPARISON: None. 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 There is mild cerebral atrophy. The ventricular system is correspondingly approp riate in size and configuration. There is no clear CT evidence of acute intracranial hemorrhage or si gnificant mass effect. ORBITS: No significant abnormality of visualized orbits. SINUSES / MASTOIDS: No significant abnormality in the visualized paranasal sinuses or mastoid air prashant ls. CRANIOCERVICAL JUNCTION: No significant abnormality. ADDITIONAL FINDINGS: None. IMPRESSION: 1. This mild microvascular angiopathy without CT ends of acute intracranial hemorrhage. Signer Name: Yunier Haddad MD Signed: 07/07/2020 9:40 PM Workstation Name: [id number]
[2020-07-07 21:53] LABS: INR 1.03 (0.87-1.13)
[2020-07-07 21:59] LABS: Albumin 4.2 g/dL (3.9-5); Calcium 9.4 mg/dL (8.4-10.2)
[2020-07-07] MEDS ORDERED: MAGNESIUM SULFATE 2 GM/50 ML BAG IV ONE (22:09)
[2020-07-07] MEDS ORDERED: FUROSEMIDE 20 MG/2 ML INJ IV ONE (22:09)
--- NOTE | 2020-07-07 22:33 | XRay Report ---
CHEST 1 VIEW 07/07/2020 9:26 PM INDICATION / CLINICAL INFORMATION: chronic dyspnea, copd lower ext swelling. COMPARISON: Chest x-ray 07/15/2019 FINDINGS: SUPPORT DEVICES: None. HEART / MEDIASTINUM: No significant abnormality. LUNGS / PLEURA: No significant pulmonary or pleural abnormality. No pneumothorax. ADDITIONAL FINDINGS: No significant additional findings. IMPRESSION: 1. No acute findings. Signer Name: Du Emerson MD Signed: 07/07/2020 10:29 PM Workstation Name: [id number]
--- NOTE | 2020-07-07 22:34 | XRay Report ---
LEFT ELBOW 2 VIEW(S) INDICATION / CLINICAL INFORMATION: left arm pain fall COMPARISON: None available. FINDINGS: BONES / JOINT(S): Acute mildly displaced fracture involving the radial head and neck with elbow hemar throsis and displacement of both anterior and posterior elbow fat pads No significant arthritis. SOFT TISSUES: No significant abnormality. ADDITIONAL FINDINGS: None. Signer Name: Du Emerson MD Signed: 07/07/2020 10:29 PM Workstation Name: [id number]
[2020-07-07] MEDS ORDERED: IPRATROPIUM/ALBUTEROL SULFATE 3 ML AMPUL.NEB IH ONE (23:22)
[2020-07-07 23:56] VITALS: BP 126/81
[2020-07-08] MEDS ORDERED: MORPHINE 4 MG/1 ML INJ IV ONE (00:11)
[2020-07-08] MEDS ORDERED: MORPHINE 15 MG TAB PO ONE (00:41)
== END 2020-07-08 01:23 | disposition home or self-care (01) ==
LOC: ED 18:43
DX: S42.202A Unspecified fracture of upper end of left humerus, initial encounter for closed fracture (principal); S52.122A Displaced fracture of head of left radius, initial encounter for closed fracture; J45.909 Unspecified asthma, uncomplicated; E83.42 Hypomagnesemia; R60.9 Edema, unspecified; I10 Essential (primary) hypertension; K21.9 Gastro-esophageal reflux disease without esophagitis; M19.91 Primary osteoarthritis, unspecified site; G43.909 Migraine, unspecified, not intractable, without status migrainosus; Z98.890 Other specified postprocedural states; Z79.899 Other long term (current) drug therapy; W19.XXXA Unspecified fall, initial encounter; Y93.89 Activity, other specified; Y92.89 Other specified places as the place of occurrence of the external cause; Y99.8 Other external cause status
CPT/HCPCS: 36415; 70450; 71045; 73030; 73070; 73110; 80053; 82550; 83735; 83880; 85027; 85610; 93005; 94640; 96365; 96375; 99285; J1940; J2270; J3475; 94644

== ENCOUNTER 2020-11-11 10:11 | Emergency (ER) | payer MEDICARE ==
[2020-11-11] MEDS ORDERED: FUROSEMIDE 40 MG/4 ML INJ IV ONE (10:51)
--- NOTE | 2020-11-11 10:57 | Emergency Department Report ---
ED Shortness of Breath HPI - General Chief Complaint: Dyspnea/Respdistress Stated Complaint: SWOLLEN FEET Time Seen by Provider: 11/11/20 10:42 Source: patient Mode of arrival: Wheelchair Limitations: No Limitations - History of Present Illness Initial Comments: Patient is an 80-year-old female with significant past medical history presents to emergency department for evaluation of worsening swelling of both legs diffusely over the past several weeks, associated with mild increase in baseline shortness of breath without chest pain, without cough, without fever. - Related Data Home Medications Medication Instructions Recorded Confirmed Last Taken Atenolol/Chlorthalidone [Tenoretic 1 tab PO QAM 08/26/16 08/09/20 08/31/17 08:30 50-25] Omeprazole 20 mg PO QHS 08/26/16 08/09/20 08/31/17 08:30 Albuterol Mdi (or & Nicu Only) 2 puff IH QID PRN 03/24/17 08/09/20 03/29/17 [ProAir HFA Inhaler] Previous Rx's Medication Instructions Recorded Last Taken Type Lovastatin [Altoprev] 40 mg PO QHS #30 tab.er.24h 04/11/17 08/30/17 21:00 Rx Loperamide [Imodium] 2 tab PO QID 2 Days #16 capsule 02/12/19 Unknown Rx metroNIDAZOLE [Flagyl TAB] 500 mg PO Q12HR 7 Days #14 tab 02/12/19 Unknown Rx Acetaminophen [Non-Aspirin Extra 500 mg PO Q6HR PRN #30 tablet 07/08/20 Unknown Rx Strength] Albuterol Sulfate [Proair 90 mcg IH Q4HR PRN #2 aer.pow.ba 07/08/20 Unknown Rx Respiclick] Magnesium Oxide 400 mg PO QDAY #30 tablet 07/08/20 Unknown Rx Morphine Sulfate [Morphine Sulfate 7.5 mg PO Q6HR PRN #10 tablet 07/08/20 Unknown Rx IR] Acetaminophen [Acetaminophen TAB] 650 mg PO Q4H PRN tablet 08/11/20 Unknown Rx Benzonatate [Tessalon Perles] 100 mg PO PRN PRN #30 capsule 08/11/20 Unknown Rx Chlorthalidone [Thalitone] 25 mg PO QDAY #30 tablet 08/11/20 Unknown Rx Furosemide [Lasix TAB] 20 mg PO QDAY #7 tablet 08/11/20 Unknown Rx Gabapentin [Gralise] 200 mg PO TID #90 08/11/20 Unknown Rx Ipratropium/Albuterol Sulfate 1 ampul IH TIDRT ampul.neb 08/11/20 Unknown Rx [DUONEB *Not for PRN Use*] atenoloL [Tenormin] 50 mg PO QDAY #30 tablet 08/11/20 Unknown Rx methylPREDNISolone [Medrol 4MG 4 mg PO CONT #21 tab.ds.pk 08/11/20 Unknown Rx DOSEPAK (21 tabs)] Allergies Allergy/AdvReac Type Severity Reaction Status Date / Time No Known Allergies Allergy Verified 12/02/16 12:24 ED Review of Systems ROS: Stated complaint: SWOLLEN FEET Other details as noted in HPI Comment: All other systems reviewed and negative ED Past Medical Hx - Past Medical History Previous Medical History?: Yes Hx Hypertension: Yes Hx GERD: Yes Hx of Cancer: Yes (bladder, breast) Hx Arthritis: Yes Hx Headaches / Migraines: Yes (MIGRAINES) Hx Seizures: Yes Hx Asthma: Yes (INHALERS PRN) Hx COPD: Yes Hx HIV: No Additional medical history: acid reflux. (+) atrial fibrillation - Surgical History Past Surgical History?: Yes Additional Surgical History: bilateral knee replacement. left shoulder surgery - Social History Smoking Status: Never Smoker Substance Use Type: None - Medications Home Medications: Home Medications Medication Instructions Recorded Confirmed Last Taken Type Atenolol/Chlorthalidone [Tenoretic 1 tab PO QAM 08/26/16 08/09/20 08/31/17 08:30 History 50-25] Omeprazole 20 mg PO QHS 08/26/16 08/09/20 08/31/17 08:30 History Albuterol Mdi (or & Nicu Only) 2 puff IH QID PRN 03/24/17 08/09/20 03/29/17 History [ProAir HFA Inhaler] Lovastatin [Altoprev] 40 mg PO QHS #30 tab.er.24h 04/11/17 08/09/20 08/30/17 21:00 Rx Loperamide [Imodium] 2 tab PO QID 2 Days #16 capsule 02/12/19 08/09/20 Unknown Rx metroNIDAZOLE [Flagyl TAB] 500 mg PO Q12HR 7 Days #14 tab 02/12/19 08/09/20 Unknown Rx Acetaminophen [Non-Aspirin Extra 500 mg PO Q6HR PRN #30 tablet 07/08/20 08/09/20 Unknown Rx Strength] Albuterol Sulfate [Proair 90 mcg IH Q4HR PRN #2 aer.pow.ba 07/08/20 08/09/20 Unknown Rx Respiclick] Magnesium Oxide 400 mg PO QDAY #30 tablet 07/08/20 08/09/20 Unknown Rx Morphine Sulfate [Morphine Sulfate 7.5 mg PO Q6HR PRN #10 tablet 07/08/20 08/09/20 Unknown Rx IR] Acetaminophen [Acetaminophen TAB] 650 mg PO Q4H PRN tablet 08/11/20 Unknown Rx Benzonatate [Tessalon Perles] 100 mg PO PRN PRN #30 capsule 08/11/20 Unknown Rx Chlorthalidone [Thalitone] 25 mg PO QDAY #30 tablet 08/11/20 Unknown Rx Furosemide [Lasix TAB] 20 mg PO QDAY #7 tablet 08/11/20 Unknown Rx Gabapentin [Gralise] 200 mg PO TID #90 08/11/20 Unknown Rx Ipratropium/Albuterol Sulfate 1 ampul IH TIDRT ampul.neb 08/11/20 Unknown Rx [DUONEB *Not for PRN Use*] atenoloL [Tenormin] 50 mg PO QDAY #30 tablet 08/11/20 Unknown Rx methylPREDNISolone [Medrol 4MG 4 mg PO CONT #21 tab.ds.pk 08/11/20 Unknown Rx DOSEPAK (21 tabs)] ED Physical Exam - General Limitations: No Limitations General appearance: alert, in no apparent distress - Head Head exam: Present: atraumatic, normocephalic - Eye Eye exam: Present: normal appearance - ENT ENT exam: Present: mucous membranes moist - Neck Neck exam: Present: normal inspection - Respiratory Respiratory exam: Present: rales. Absent: respiratory distress - Cardiovascular Cardiovascular Exam: Present: regular rate, normal rhythm. Absent: systolic murmur, diastolic murmur, rubs, gallop - GI/Abdominal GI/Abdominal exam: Present: soft, normal bowel sounds - Extremities Exam Extremities exam: Present: normal inspection, pedal edema (2+ pitting edema bilaterally diffusely to both legs) - Back Exam Back exam: Present: normal inspection - Neurological Exam Neurological exam: Present: alert, oriented X3 - Psychiatric Psychiatric exam: Present: normal affect, normal mood - Skin Skin exam: Present: warm, dry, intact, normal color. Absent: rash ED Course Vital Signs 11/11/20 11/11/20 11/11/20 10:26 11:02 11:15 Pulse Rate 120 H 103 H Respiratory 20 Rate Blood Pressure 129/94 Blood Pressure [Left] Blood Pressure 116/77 [Right] O2 Sat by Pulse 97 Oximetry 11/11/20 11/11/20 11/11/20 11:27 12:43 12:46 Pulse Rate 103 H 106 H Respiratory 22 15 26 H Rate Blood Pressure 129/94 132/73 Blood Pressure 129/94 [Left] Blood Pressure [Right] O2 Sat by Pulse Oximetry 11/11/20 11/11/20 13:00 14:08 Pulse Rate 98 H 113 H Respiratory 26 H Rate Blood Pressure 132/73 144/99 Blood Pressure [Left] Blood Pressure [Right] O2 Sat by Pulse Oximetry - Reevaluation(s) Reevaluation #1: 11/11/20 14:46 Following Lasix, patient in no acute distress, lungs clear to auscultation. Pat ient treated with p.o. calcium, IV magnesium, IV Cardizem. Reevaluation #2: 11/11/20 14:40 Patient has history of atrial fibrillation intermittently documented on ER and admission chart, patient's primary care doctor, YUNG West MD contacted, case discussed, states he is unsure why patient is not anticoagulated and requests patient follow-up in his office at 11:30 AM this upcoming , 11/13/2020. States patient's leg swelling has been ongoing for several decades and has been evaluated by multiple subspecialties over this time. This conversation was communicated to both the patient and her daughter, who are both made aware of follow-up visit in 44 hours. On discharge exam, patient in no acute distress, and rate controlled A. fib without complaint. 11/11/20 14:46 ED Medical Decision Making - Lab Data Result diagrams: 11/11/20 11:19 11/11/20 11:19 Lab Results 11/11/20 11/11/20 11/11/20 Range/Units 11:19 11:19 11:19 WBC 6.4 (4.5-11.0) K/mm3 RBC 4.64 (3.65-5.03) M/mm3 Hgb 13.3 (10.1-14.3) gm/dl Hct 40.6 (30.3-42.9) % MCV 88 (79-97) fl MCH 29 (28-32) pg MCHC 33 (30-34) % RDW 15.6 H (13.2-15.2) % Plt Count 199 (140-440) K/mm3 Griggs % (Auto) Fulfillment Mail Clerk Add Manual Diff Complete Total Counted 100 Seg Neuts % (Manual) 77.0 H (40.0-70.0) % Lymphocytes % (Manual) 13.0 L (13.4-35.0) % Monocytes % (Manual) 9.0 H (0.0-7.3) % Eosinophils % (Manual) 1.0 (0.0-4.3) % Nucleated RBC % Not Reportable Seg Neutrophils # Man 4.9 (1.8-7.7) K/mm3 Band Neutrophils # 0.0 K/mm3 Lymphocytes # (Manual) 0.8 L (1.2-5.4) K/mm3 Abs React Lymphs (Man) 0.0 K/mm3 Monocytes # (Manual) 0.6 (0.0-0.8) K/mm3 Eosinophils # (Manual) 0.1 (0.0-0.4) K/mm3 Basophils # (Manual) 0.0 (0.0-0.1) K/mm3 Metamyelocytes # 0.0 K/mm3 Myelocytes # 0.0 K/mm3 Promyelocytes # 0.0 K/mm3 Blast Cells # 0.0 K/mm3 WBC Morphology Not Reportable Hypersegmented Neuts Not Reportable Hyposegmented Neuts Not Reportable Hypogranular Neuts Not Reportable Smudge Cells Not Reportable Toxic Granulation Not Reportable Toxic Vacuolation Not Reportable Dohle Bodies Not Reportable Pelger-Huet Anomaly Not Reportable Jayesh Rods Not Reportable Platelet Estimate Consistent w auto Clumped Platelets Not Reportable Plt Clumps, EDTA Not Reportable Large Platelets Not Reportable Giant Platelets Not Reportable Platelet Satelliting Not Reportable Plt Morphology Comment Not Reportable RBC Morphology Not Reportable Dimorphic RBCs Not Reportable Polychromasia Not Reportable Hypochromasia Not Reportable Poikilocytosis 1+ Anisocytosis 1+ Microcytosis Not Reportable Macrocytosis Not Reportable Spherocytes Not Reportable Pappenheimer Bodies Not Reportable Sickle Cells Not Reportable Target Cells Not Reportable Tear Drop Cells Not Reportable Ovalocytes Not Reportable Helmet Cells Not Reportable [place] Bodies Not Reportable [place] Rings Not Reportable Mallard Cells Few Bite Cells Not Reportable Crenated Cell Not Reportable Elliptocytes Not Reportable Acanthocytes (Spur) Few Rouleaux Not Reportable Hemoglobin C Crystals Not Reportable Schistocytes Rare Malaria parasites Not Reportable Jose J Bodies Not Reportable Hem Pathologist Commnt No PT (12.2-14.9) Sec. INR (0.87-1.13) Sodium 126 L (137-145) mmol/L Potassium 3.2 L (3.6-5.0) mmol/L Chloride 82.6 L (98-107) mmol/L Carbon Dioxide 30 (22-30) mmol/L Anion Gap 17 mmol/L BUN 16 (7-17) mg/dL Creatinine 1.0 (0.6-1.2) mg/dL Estimated GFR 53 ml/min BUN/Creatinine Ratio 16 % Glucose 91 (65-100) mg/dL Calcium 9.4 (8.4-10.2) mg/dL Magnesium (1.7-2.3) mg/dL Troponin T < 0.010 (0.00-0.029) ng/mL NT-Pro-B Natriuret Pep 96854 H (0-900) pg/mL 11/11/20 11/11/20 Range/Units 11:30 13:04 WBC (4.5-11.0) K/mm3 RBC (3.65-5.03) M/mm3 Hgb (10.1-14.3) gm/dl Hct (30.3-42.9) % MCV (79-97) fl MCH (28-32) pg MCHC (30-34) % RDW (13.2-15.2) % Plt Count (140-440) K/mm3 Griggs % (Auto) Add Manual Diff Total Counted Seg Neuts % (Manual) (40.0-70.0) % Lymphocytes % (Manual) (13.4-35.0) % Monocytes % (Manual) (0.0-7.3) % Eosinophils % (Manual) (0.0-4.3) % Nucleated RBC % Seg Neutrophils # Man (1.8-7.7) K/mm3 Band Neutrophils # K/mm3 Lymphocytes # (Manual) (1.2-5.4) K/mm3 Abs React Lymphs (Man) K/mm3 Monocytes # (Manual) (0.0-0.8) K/mm3 Eosinophils # (Manual) (0.0-0.4) K/mm3 Basophils # (Manual) (0.0-0.1) K/mm3 Metamyelocytes # K/mm3 Myelocytes # K/mm3 Promyelocytes # K/mm3 Blast Cells # K/mm3 WBC Morphology Hypersegmented Neuts Hyposegmented Neuts Hypogranular Neuts Smudge Cells Toxic Granulation Toxic Vacuolation Dohle Bodies Pelger-Huet Anomaly Jayesh Rods Platelet Estimate Clumped Platelets Plt Clumps, EDTA Large Platelets Giant Platelets Platelet Satelliting Plt Morphology Comment RBC Morphology Dimorphic RBCs Polychromasia Hypochromasia Poikilocytosis Anisocytosis Microcytosis Macrocytosis Spherocytes Pappenheimer Bodies Sickle Cells Target Cells Tear Drop Cells Ovalocytes Helmet Cells [place] Bodies [place] Rings Erendira Cells Bite Cells Crenated Cell Elliptocytes Acanthocytes (Spur) Rouleaux Hemoglobin C Crystals Schistocytes Malaria parasites Jose J Bodies Hem Pathologist Commnt PT 13.7 (12.2-14.9) Sec. INR 1.06 (0.87-1.13) Sodium (137-145) mmol/L Potassium (3.6-5.0) mmol/L Chloride (98-107) mmol/L Carbon Dioxide (22-30) mmol/L Anion Gap mmol/L BUN (7-17) mg/dL Creatinine (0.6-1.2) mg/dL Estimated GFR ml/min BUN/Creatinine Ratio % Glucose (65-100) mg/dL Calcium (8.4-10.2) mg/dL Magnesium 1.10 L (1.7-2.3) mg/dL Troponin T (0.00-0.029) ng/mL NT-Pro-B Natriuret Pep (0-900) pg/mL Vital Signs 11/11/20 11/11/20 11/11/20 10:26 11:02 11:15 Pulse Rate 120 H 103 H Respiratory 20 Rate Blood Pressure 129/94 Blood Pressure [Left] Blood Pressure 116/77 [Right] O2 Sat by Pulse 97 Oximetry 11/11/20 11/11/20 11/11/20 11:27 12:43 12:46 Pulse Rate 103 H 106 H Respiratory 22 15 26 H Rate Blood Pressure 129/94 132/73 Blood Pressure 129/94 [Left] Blood Pressure [Right] O2 Sat by Pulse Oximetry 11/11/20 11/11/20 13:00 14:08 Pulse Rate 98 H 113 H Respiratory 26 H Rate Blood Pressure 132/73 144/99 Blood Pressure [Left] Blood Pressure [Right] O2 Sat by Pulse Oximetry - EKG Data -: EKG Interpreted by Me (Atrial fibrillation 103, no ST-T changes, normal QRS) - Radiology Data Radiology results: report reviewed Patient: CHIP MOROCHO II MR#: [id number] : 06/06/1958 Acct:[id number] Age/Sex: 62 / M ADM Date: 11/11/20 Loc: ED Attending Dr: Ordering Physician: ROHAN BEATTY MD Date of Service: 11/11/20 Procedure(s): XR chest 1V ap Accession Number(s): [id number] cc: ROHAN BEATTY MD Fluoro Time In Minutes: CHEST 1 VIEW, 11/11/2020 6:27 AM CLINICAL INFORMATION/INDICATION: Chest pain COMPARISON: None. FINDINGS: SUPPORT DEVICES: None. HEART: The cardiac silhouette is normal in size. LUNGS/PLEURA: The lungs are clear of focal airspace disease or significant pleural effusion ADDITIONAL FINDINGS: No additional acute findings. IMPRESSION: 1. No evidence of acute cardiopulmonary process. Signer Name: Ira Ren MD Signed: 11/11/2020 7:34 AM Workstation Name: [id number] Transcribed By: EB Dictated By: Ira Ren MD Electronically Authenticated By: Ira Ren MD Signed Date/Time: 11/11/[address] [facility] [address] [place] [address] Vascular Lab Report Signed Patient: CJ SHAH MR# : [id number] : 1940 Acct:[id number] Age/Sex: 80 / F ADM Date: 11/11/20 Loc: ED Attending Dr: Ordering Physician: ROHAN BEATTY MD Date of Service: 11/11/20 Procedure(s): VL venous duplex LE FREDIS Accession Number(s): [id number] cc: ROHAN BEATTY MD DUPLEX DOPPLER LOWER EXTREMITY VEINS, BILATERAL INDICATION: Shortness of Breath R/O DVT. TECHNIQUE: Duplex doppler imaging was performed through the veins of both lower extremities using venous compression and other maneuvers. COMPARISON: No relevant prior imaging study available. FINDINGS: Right Common femoral vein: Negative. Right Superficial femoral vein: Negative. Right Popliteal vein: Negative. Right Calf veins: Negative. Left Common femoral vein: Negative. Left Superficial femoral vein: Negative. Left Popliteal vein: Negative. Left Calf veins: Negative. Additional findings: None.. IMPRESSION: 1. No sonographic evidence for DVT in either lower extremity. Signer Name: Zana Hanley MD Signed: 11/11/2020 12:44 PM Workstation Name: [id number] Transcribed By: MAN Dictated By: Zana Hanley MD Electronically Authenticated By: Zana Hanley MD Signed Date/Time: 11/11/20 1244 Critical care attestation.: If time is entered above; I have spent that time in minutes in the direct care of this critically ill patient, excluding procedure time. ED Disposition Clinical Impression: Atrial fibrillation, Hypomagnesemia, Hypokalemia, Peripheral edema Disposition: DC-01 TO HOME OR SELFCARE Is pt being admited?: No Condition: Stable Instructions: Hypomagnesemia, Atrial Fibrillation, Hypokalemia, Peripheral Edema Referrals: ESVIN BAEZ MD [Primary Care Provider] - 3-5 Days YUNG MILLS MD [Staff Physician] - 11/13/20 11:30 am (Follow-up with primary care doctor on at 11:30 AM as arranged in the emergency department. Return to the emergency department for worsening symptoms.)
--- NOTE | 2020-11-11 11:23 | XRay Report ---
XR chest 1V ap INDICATION / CLINICAL INFORMATION: Dyspnea COMPARISON: 09/08/2020 FINDINGS: SUPPORT DEVICES: None. HEART / MEDIASTINUM: No significant abnormality. LUNGS / PLEURA: Low lung volumes. Left basilar parenchymal opacity. Costophrenic sulci are sharp. No pneumothorax. ADDITIONAL FINDINGS: No significant additional findings. IMPRESSION: 1. Left basilar parenchymal opacity which is likely related to atelectasis. No definite airspace dise ase. Signer Name: Benjamin Dodd MD Signed: 11/11/2020 11:19 AM Workstation Name: [email or web address]
[2020-11-11 12:17] LABS: Hematocrit 40.6 % (30.3-42.9); Hemoglobin 13.3 gm/dl (10.1-14.3); Mean Corpuscular HGB Conc 33 % (30-34); Mean Corpuscular Volume 88 fl (79-97); Platelet Count 199 K/mm3 (140-440); Red Blood Count 4.64 M/mm3 (3.65-5.03); Red Cell Distribution Width 15.6 % (13.2-15.2)
--- NOTE | 2020-11-11 12:49 | Vascular Lab Report ---
DUPLEX DOPPLER LOWER EXTREMITY VEINS, BILATERAL INDICATION: Shortness of Breath R/O DVT. TECHNIQUE: Duplex doppler imaging was performed through the veins of both lower extremities using venous taylor janet and other maneuvers. COMPARISON: No relevant prior imaging study available. FINDINGS: Right Common femoral vein: Negative. Right Superficial femoral vein: Negative. Right Popliteal vein: Negative. Right Calf veins: Negative. Left Common femoral vein: Negative. Left Superficial femoral vein: Negative. Left Popliteal vein: Negative. Left Calf veins: Negative. Additional findings: None.. IMPRESSION: 1. No sonographic evidence for DVT in either lower extremity. Signer Name: Zana Hanley MD Signed: 11/11/2020 12:44 PM Workstation Name: [id number]
[2020-11-11 12:54] LABS: BUN/Creatinine Ratio 16; Blood Urea Nitrogen 16 mg/dL (7-17); Calcium 9.4 mg/dL (8.4-10.2); Hemolysis Index 16
[2020-11-11] MEDS ORDERED: POTASSIUM CHLORIDE ER 20 MEQ TAB PO ONE (12:58)
[2020-11-11 13:14] LABS: Total Cells Counted 100
[2020-11-11 13:15] LABS: Anisocytosis 1+; Burr Cells Few; Poikilocytosis 1+
[2020-11-11 13:16] LABS: Platelet Estimate Consistent w Auto; Schistocytes Rare
[2020-11-11] MEDS ORDERED: ACETAMINOPHEN 325 MG TAB PO ONE (13:30)
[2020-11-11] MEDS ORDERED: MAGNESIUM SULFATE 2 GM/50 ML BAG IV ONE (13:36)
[2020-11-11] MEDS ORDERED: dilTIAZem 25 MG/5 ML INJ IV STA (13:43)
[2020-11-11 13:57] LABS: INR 1.06 (0.87-1.13)
[2020-11-11 15:51] VITALS: BP 100/79
== END 2020-11-11 17:50 | disposition home or self-care (01) ==
LOC: ED 10:11
DX: I48.91 Unspecified atrial fibrillation (principal); E83.42 Hypomagnesemia; E87.6 Hypokalemia; R60.9 Edema, unspecified; I10 Essential (primary) hypertension; K21.9 Gastro-esophageal reflux disease without esophagitis; M19.90 Unspecified osteoarthritis, unspecified site; G40.909 Epilepsy, unspecified, not intractable, without status epilepticus; J45.909 Unspecified asthma, uncomplicated; J44.9 Chronic obstructive pulmonary disease, unspecified; Z98.890 Other specified postprocedural states; Z79.899 Other long term (current) drug therapy
CPT/HCPCS: 36415; 71045; 80048; 83735; 83880; 84484; 85007; 85025; 85610; 93005; 93970; 96365; 96375; 99284; J1940; J3475